=== PATIENT | female | born 1960 | race Caucasian/White ===

== ENCOUNTER 2016-02-25 13:21 | Inpatient (IN) | payer OTHER ==
[~2016-02-25] VITALS: Ht 175.3 cm; Wt 84.1 kg
[~2016-02-25 13:21] MED LIST: BETH10TA PO; CHOL3000 PO; GABA-502 PO; HYDR200T5 PO; INSLIS SUBQ; INSU100V7 SUBQ; IPRA4AER IH; LEVO200T6 PO; MAGN400T4 PO; METF1000 PO; METH-313 PO; MYCO500T PO; OMEP20CA11 PO; PRAZ1CAP PO; PRAZ2CAP PO; PRE10 PO; QUET100T69 PO; ROPI0.5T PO; albuterol inhaler
[2016-02-25 13:26] VITALS: BP 120/80; PULSE 118; RESP 20; O2SAT 98
--- NOTE | 2016-02-25 15:23 | ED.REPORT ---
HPI-Psychiatric Illness Date of Service Feb 25, 2016 ED Provider: Pk Lee MD Pt is a 55 year old female presenting to the ED complaining of confusion and memory loss. The pt was discharged from the third floor at [facility] yesterday and had a follow up appointment with a mental health professional yesterday. Today she was brought in by a sheet pile driver operator from a hotel where she is staying. On interview, the pt states "I don't know where I am", and that her head "feels funny." Nursing Notes Stated Complaint: CONFUSED/MEMORY LOSS Chief Complaint: Neuro Symptoms/ Deficits Nursing Notes Reviewed: Yes ([employer], meds not reconciled) Allergies: Coded Allergies: Penicillins (Verified Allergy, Severe, HIVES, 02/19/16) Quinolones (Verified Allergy, Severe, FACIAL SWELLING, 02/19/16) divalproex sodium (Verified Allergy, Severe, Dizziness, 02/19/16) levofloxacin (Verified Allergy, Severe, FACIAL SWELLING, 02/19/16) lithium (Verified Allergy, Severe, Dizziness, anxiety, and confusion, ) sulfamethoxazole (Verified Allergy, Severe, Passed out, 02/19/16) trimethoprim (Verified Allergy, Severe, Passed out, 02/19/16) duloxetine (Verified Allergy, Intermediate, makes me looney, 02/19/16) nitrofurantoin (Verified Allergy, Unknown, "all the side effects", ) duloxetine HCl (Verified Adverse Reaction, Severe, CONFUSION, 02/19/16) pregabalin (Verified Adverse Reaction, Severe, CONFUSION, 02/19/16) Scheduled ([albuterol inhaler]) TID Bethanechol Chloride (Bethanechol Chloride) 10 Mg Tablet 20 MG PO TIDAC Cholecalciferol (Vitamin D3) (Vitamin D3) 3,000 Unit Tablet 3,000 UNIT PO DAILY Gabapentin (Gabapentin) 300 Mg Capsule 900 MG PO QID Hydroxychloroquine Sulfate (Hydroxychloroquine Sulfate) 200 Mg Tablet 400 MG PO DAILY Insulin Glargine (Lantus U100 Insulin Vial) 100 Unit/Ml Vial 18 UNIT SUBQ HS Insulin Human Lispro (HumaLOG U100 Insulin Vial) 100 Unit/Ml Unit 0 UNIT SUBQ WMHS Check blood sugars before meals and at bedtime. Use correction factor only before meals. Blood Sugar Lispro Correction: <151, 0 units; 151-175, 1 unit; 176-200, 2 units; 201-225, 3 units; 226-250, 4 units; 251-275, 5 units; 276-300 , 6 units; 301-325, 7 units; 326-350, 8 units; 351-375, 9 units; 376-400, 10 units; >400, 12 units. Levothyroxine (Levothyroxine) 200 Mcg Tablet 200 MCG PO DAILY Magnesium Oxide (Magnesium Oxide) 400 Mg Tablet 400 MG PO BID Metformin (Glucophage) 1,000 Mg Tablet 1,000 MG PO BID Methocarbamol (Robaxin-750) 750 Mg Tablet 750 MG PO TID Mycophenolate Mofetil (Cellcept) 500 Mg Tablet 1,000 MG PO BID Omeprazole (Omeprazole) 20 Mg Capsule.dr 20 MG PO DAILY Prazosin (Minipress) 1 Mg Capsule 1 MG PO DAILY Prazosin (Minipress) 2 Mg Capsule 2 MG PO HS Prednisone (PredniSONE) 10 Mg Tablet 10 MG PO DAILY Quetiapine Fumarate (Quetiapine Fumarate) 100 Mg Tablet 100 MG PO DAILY Quetiapine Fumarate (Quetiapine Fumarate) 100 Mg Tablet 200 MG PO HS Ropinirole (Requip) 0.5 Mg Tablet 0.5 MG PO HS Scheduled PRN Albuterol/Ipratropium (Combivent Respimat Inhal [place]) 120 Spr/4 Gm Inhaler 1 PUFF IH QID PRN PRN For Shortness of Breath General Time Seen by MD: 15:05 Chief Complaint Confused Hx Obtained From: Patient Arrived By: Walk-in (Taxi) Onset Occurred: Onset unknown Symptom Duration: Since onset Progression Since Onset: Constant Severity: Current: No pain currently Severity: Maximum: No pain Recent Healthcare: Recent doctor visit, Recent hospitalization Similar Sx Previous: Yes Risk-Psychiatric Illness Suicide Risk Stratification Suicide Risk Factors - Adult: : Prior psych admission RF Statements: Risk factors reviewed Past Medical History Past Medical History Notes: Patient admitted 02/18-02/24 (discharged earlier today) for Psychosis, NOS, PTSD, and malingering Patient seen in ED 11/21 (similar presentation), 11/18, and 11/10, 11/02 (admit w/neg laury), 11/01 Last Admit 11/02-01/10 ALEXA'd for simialr sx - extensive medical w/u that was negative and psychiatric consultation with a concern for facticious component and borderline personality (See Pysch consult by Wale Stinson) Followed through the [place] clinic system for psychiatric care "followed closely by [facility]. frequent health care utilizer chronic pain and opiate habituation" - per prior notes Discharged 10/27/15 - primary diagnosis of borderline personality disorder: Suspected overdose, similar presentation hospitalization October 04-. According to the discharge summary "she was seen by psychiatry, psychiatry felt that she was not a candidate for inpatient psychiatric care..." They strongly recommend avoiding benzodiazepines. Past Medical History From EMR: [place] Fibromyalgia, nerve Hypercholesterolemia. Hypothyroidism. History of bilateral pulmonary emboli in the past. 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 PTSD. Depression. Anxiety. Previous suicide attempt. History of chronic urinary retention. Chronic pain syndrome with narcotic habituation (on Methadone) Reported Systemic Lupus on chronic steroids and [place] Schizoaffective disorder. Recently diagsnosed (10/2015) [place] 1 Factitious disorder and [place] II Borderline personality Reports: Diabetes mellitus, GERD, Hyperlipidemia Past Surgical History Complete bilateral knee replacement umbilical hernia Reports: Cholecystectomy, Hysterectomy Family History Both brother and dad had a heart attack at age 45. Dad apparently had CABG x4 and brother had at least an angiogram, not sure whether he had an intervention or not. Smoking History Former Smoker Social History Pt denies alcohol use when prompted, but admits to using alcohol on seperate occaisions. Records indicate history of polysubstance abuse Other Social History: Frequent ED visitor, Lives alone, Local resident Ambulatory Status Wheelchair Review of Systems Unable to Obtain ROS Uncooperative Physical Exam Initial Vital Signs Vital Signs (First) Date Time Temp Pulse Resp B/P Pulse Ox O2 Delivery O2 Flow Rate FiO2 02/25/16 13:26 36.7 118 20 120/80 98 Initial VS: Reviewed, Vital signs abnormal Head / Eyes: Atraumatic, Normocephalic, PERRL ENT: Mucous membranes moist, Conjunctiva normal, No scleral icterus Neck: Supple, Non-tender, Full range of motion Respiratory: Breath sounds normal, Clear to auscultation, No respiratory distress Cardiovascular: Regular rate & rhythm, Heart sounds normal, Intact distal pulses Abdomen / GI: No distention Extremities: Vascular intact, Neuro intact, No swelling, No tenderness Skin: Warm, Dry, No cyanosis General/Constitutional: No acute distress, Well hydrated, Not toxic appearing Neurologic: Speech NL (patient conversed normally with the nurse, but will not talk to me), No motor deficits (patient ambulated into the department), Gait NL Eyes closed, does not wish to engage. After 1 minute of being in the room in silence, she says she doesn't know where she is. She won't answer any questions. Same presentation as when I saw her 1 week ago. Does not appear dehydrated. Abnormal Mood/Affect: Positive: Flat affect Unable to Evaluate: Positive: Uncooperative Patient refuses to converse, similar to previous presentations-and therefore cannot really obtain a clear mental evaluation Interpretation & Diagnostics Lab Results Interpretation Result Diagram: 02/25/16 1625 02/25/16 1625 Test 02/25/16 16:25 02/25/16 17:20 White Blood Count 8.6th/mm3 (3.8-10.1) Red Blood Count 4.20mil/mm3 (3.90-5.20) Hemoglobin 11.1g/dL (12.0-15.6) Hematocrit 34.7% (35.0-46.0) Mean Corpuscular Volume 82.6fL (81-100) Mean Corpuscular Hemoglobin 26.4pg (27.0-35.0) Mean Corpuscular Hemoglobin Concent 32.0% (32.0-37.0) Red Cell Distribution Width 18.2% (12.3-15.4) Platelet Count 409bil/L (150-400) Neutrophils (%) (Auto) 61.8% (40-74) Lymphocytes (%) (Auto) 25.6% (14-46) Monocytes (%) (Auto) 10.7% (4-12) Eosinophils (%) (Auto) 0.1% (0-5) Basophils (%) (Auto) 0.6% (0-3) Sodium Level 141mEq/L (134-144) Potassium Level 4.1mEq/L (3.5-5.2) Chloride Level 101mEq/L (97-108) Carbon Dioxide Level 25mmol/L (18-29) Blood Urea Nitrogen 13mg/dL (6-24) Creatinine 0.62mg/dL (0.57-1.00) Estimat Glomerular Filtration Rate 144mL/min (>59) Glucose Level 103mg/dL (60-99) Calcium Level 9.2mg/dL (8.5-10.1) Total Bilirubin 0.2mg/dL (0.0-1.2) Aspartate Amino Transf (AST/SGOT) 11U/L (0-50) Alanine Aminotransferase (ALT/SGPT) 11U/L (0-32) Alkaline Phosphatase 50U/L (25-150) Total Protein 6.4g/dL (6.4-8.4) Albumin 3.7g/dL (3.4-5.0) Hold Game[employer] Top Tube Received (Received) Alcohol, Quantitative < 10mg/dL (0-10) Urine Color Yellow (YELLOW) Urine Appearance Hazy (CLEAR,HAZY) Urine pH 7.0 (5.0-8.0) Urine Specific [place] 1.010 (1.003-1.035) Urine Protein Negativemg/dL (NEG,TRACE) Urine Glucose (UA) Negativemg/dL (NEGATIVE) Urine Ketones Negativemg/dL (NEGATIVE) Urine Occult Blood Trace (NEGATIVE) Urine Nitrite Positive (NEGATIVE) Urine Bilirubin Negative (NEGATIVE) Urine Urobilinogen Normalmg/dL (NORMAL) Urine Leukocyte Esterase Small (NEGATIVE) Urine RBC 0-2/hpf (0-2) Urine WBC 0-5/hpf (0-5) Urine Epithelial Cells None/hpf (NONE-MOD) Urine Crystals None seen (NONE SEEN) Urine Bacteria None/hpf (NONE-FEW) Urine Hyaline Casts None/lpf (NONE) Urine Granular Casts None seen (NONE SEEN) Urine Waxy Casts None seen (NONE SEEN) Urine Red Blood Cell Casts None seen (NONE SEEN) Urine White Blood Cell Casts None seen (NONE SEEN) Urine Mucus Present (None Seen) Urine Trichomonas None seen (NONE SEEN) Urine Yeast None (NONE SEEN) Urinalysis Comment None Urine Culture Reflexed Indicated Lab Results Interpretation: CBC normal CMP normal Tox screen negative ETOH negative UA negative Re-Eval/Medical Decision Med Decision/Clinical Course This is a 55-year-old who was discharged yesterday from the [facility]. Family she went from the [facility] to a scheduled [facility] appointment and kept that appointment, and then went to some hotel. Apparently initially called to be transported back to the ED, that was not for reasons that are unclear, then the statements were that the hotel called she was acting bizarrely to have her brought back to the emergency department. I seen a number of times and formed, and regularly interview today she again will not interact with me. She will not answer questions. She clearly understands what is being asked of her and apparently was talking appropriate with the nurses, and ambulated into the department. This is similar behavior she is demonstrating previously. Over multiple hours she refused to talk to me, subsequently nurse, the ENAMEL BURNER, etc. Once again labs were obtained. She received empiric IV fluids given her previous presentations concern for dehydration, but there are no clinical findings of dehydration evident, she had a mildly elevated heart rate when she first arrived this resolved. Urine tox alcohol is negative, blood work is normal, UA is negative. Meds while she ends remained completely uncooperative and not talking to anybody -at this point ENAMEL BURNER talk to the DCR the DCR's dispatch, and the patient's being hydrated with revocation of her LRO, back to the care center Source of Hx: Old records Re-Evaluation/Progress : Time of Eval: 18:40 Patient Status: Condition unchanged Re-Evaluation/Progress Note: Patient continues to refuse to talk or participate in care. Labs normal. ENAMEL BURNER is paging DCR for eval Differential Diagnosis: Positive: Noncompliance-medications, Negative: Alcohol abuse Counseled Regarding: Diagnosis, Lab results, Need for follow-up, When/why to return to ED Discharge & Departure Impression: Primary Impression: Acute psychosis Disposition: ADMITTED TO HOSPITAL Discharge Condition All VS Reviewed: Yes Condition: Improved Referrals: [facility] (PCP) Nazarioibbraden Attestation Portions of this note were transcribed by Anat George. I, Dr. Lee personally performed the history, physical exam and medical decision-making; I reviewed and confirmed the accuracy of the information in the transcribed note. Signed by: Haroon Villagomez, 02/25/2016 at (TIME). copies to: [facility] Pk Lee MD Feb 25, 2016 15:23 ANAT GEORGE Feb 25, 2016 15:36
[2016-02-25] MEDS ORDERED: 0.9% Sodium Chloride 1,000 ML IV ONE (16:35)
[2016-02-25 16:51] LABS: BASOPHILS % (AUTO) 0.6 % (0-3); EOSINOPHILS % (AUTO) 0.1 % (0-5); MONOCYTES % (AUTO) 10.7 % (4-12); Mean Corpuscular Hemoglobin 26.4 pg (27.0-35.0); Mean Corpuscular Volume 82.6 fL (81-100); NEUTROPHILS % (AUTO) 61.8 % (40-74); Platelet Count 409 bil/L (150-400)
[2016-02-25 18:26] LABS: APPEARANCE,URINE HAZY (CLEAR,HAZY); COLOR,URINE YELLOW (YELLOW); OCCULT BLOOD,URINE TRACE (NEGATIVE)
[2016-02-25 18:27] LABS: UROBILINOGEN,URINE NORMAL (NORMAL)
--- NOTE | 2016-02-25 23:30 | NUR ---
[facility] Note 1918: Patient appears to be sleeping. She is not verbally or physically responsive to staff attempting to wake her or speak with her. She does not appear to be sleeping at these times, but is volitionally keeping her eyes closed. She appears flat and not distressed. : Same behavior during staff re-approach every half an hour. 2329: Patient was physically set up on the side of her bed. Staff began to change her out of a hospital gown into scrubs for movement from the emergency room to the mental health unit. She appeared responsive but did not participate in putting the scrub top on. She took the top off and returned to her sleeping position in a calm manner, but was cooperative with staff putting it back on. She then stood up with staff assistance to put on scrub pants. She was asked to sit on the side of the bed we could move her upstairs so she didn't feel dizzy during the trip. She remained mute except to ask if she could lay down again. Patient was unable or unwilling to report how she got here, if she was oriented, or if she was having any thought/mood disturbances.
--- NOTE | 2016-02-26 02:03 | NUR ---
Nursing Admit Note Pt here gravely disabled 90 LR petition to revoke. Pt presents psychosis nos/ gravely disabled. Pt Dc'ed yesterday from this facility. Pt arrived via wheelchair with two staff persons. Pt ambulated to room upon arrival but unwilling to speak to staff or participate with assessment. Pt arrival at 2355 on 02/25/16.
[2016-02-26] MEDS ORDERED: Benzocaine-Menthol Lozenge 2/Pkg PO PRN (05:00)
[2016-02-26] MEDS ORDERED: Alum-Mag Hydrox-Simeth 30 mL Suspension PO PRN (05:00)
[2016-02-26] MEDS ORDERED: Magnesium Hydroxide 10 mL Oral Concentration PO PRN (05:00)
[2016-02-26] MEDS ORDERED: Albuterol-Ipratropium 120 Spray 4 Gm Inhaler INHALATION PRN (05:10)
--- NOTE | 2016-02-26 06:46 | NUR ---
Sleep Adequate sleep with over 6 hours. No noted distress or awakening per protocol checks.
[2016-02-26] MEDS: Insulin LISPRO 300 Unit/3 mL Inj SUBQ SCH ×4 (07:55→20:41)
[2016-02-26] MEDS: predniSONE 10 mg Tablet PO SCH ×2 (08:30→14:57)
[2016-02-26] MEDS: Hydroxychloroqine 200 mg Tablet PO SCH (08:30)
[2016-02-26] MEDS: Pantoprazole 20 mg ER24 Tablet PO SCH ×2 (08:30→14:58)
--- NOTE | 2016-02-26 10:23 | NUR ---
Nursing Day Shift- S/O- Pt. was visible on the unit at the start of the day shift today. She was ambulating with a steady slow gait with the use of a front wheeled walker. Pt. appeared alert and oriented to her surroundings, but declined to respond verbally to staff greetings or questions. Staff attempted to obtain a BS, but the Pt. pulled her hand away, and clenched her fingers into a ball. Pt. declined breakfast, then her morning medications. She spent close to an hour walking the hallway, then returned to bed. Medications were offered again at 1035, and the Pt. clenched her eyes closed, then turned away in her bed. A- Pt. appears to be choosing to ignore staff. Resistant to care at this time. Appears to have a steady gait, and no apparent problems with cognition. PChristine OROZCO notified. Cont. to monitor and support. Cont. BHTP. Addendum: 02/26/16 at 1517 by REBECCA JERRY RN Pt. was observed walking outside her room without clothing 2 times at about 1300. both times she appeared steady, and was redirected to her room to dress. Pt. stated: "Can I get some clean clothing?" the 2nd time it occurred. At 1445 Pt. was presented with Seroquel, Flexeril and Prednisone PO. She initially did not respond to a staff request to take her medications. The order for a 2nd opinion for forced medications was explained to her, and the Pt. then sat up at the bedside and swallowed the 3 pills. She was encouraged to allow a BS check before dinner, and offered positive reinforcement for making a healthy choice.
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
--- NOTE | 2016-02-26 16:26 | NUR ---
Jig Bore Tool Maker./ c.m. S./O.: in the middle of the morning signwriter came into pt.'s room together with MD to complete Psychosocial and Treatment plan and goals. Pt. was in bed resting. She refused to open her eyes, refused to talk. MD and signwriter notified pt. about a reason of the visit but she continued being mute. Pt. is [employer]LEXA as a petition for revocation of 90 LRO. A.: pt. is isolative, quiet, selectively mute. P.: monitor behavior, encourage pt. to take meds; follow care plan.
--- NOTE | 2016-02-26 19:42 | NUR ---
Observations 0900 to 2130 Pt affect and mood was isolative, flat and guarded. Pt speech and eye contact was poor. Pt did not attend groups and unit activities. Pt maintained behavior control throughout the shift other than coming out of her room naked and walked down the hallway before being redirected by staff. Pt declined to attend meals in the D.R. and had a poor appetite today. Pt was in her room and in bed most of the shift. Pt was observed every 15 minutes throughout the shift as ordered.
--- NOTE | 2016-02-26 20:43 | NUR ---
NURSING NOTE [id number] Orientation: unable to assess Mood: unable to assess, pt. did not respond Affect: unresponsive, at times appeared to be sleeping heavily despite being spoken to with a loud voice and multiple attempts to stir her Behavior: pt. has been resting in bed since start of shift. She appears to have been urinating into water cups at her bedside; dark nela color noted. Bedside table was cleaned and water and encouragement provided to promote hydration. Pt. refused her meals this evening. She refused her scheduled afternoon medications and FSBS (refusal noted by her unwillingness to respond to this proposal lead writer when being spoken to). This evening she had Seroquel scheduled and initially laid in bed, unresponsive, when presented with the medication. She was then presented with an IM Zyprexa and given the option for taking her Seroquel PO or given a shot. At this, she extended her hand and took the pill cup from this proposal lead writer and swallowed the Seroquel.
[2016-02-26] MEDS ORDERED: Insulin GLARgine 100 Unit/mL Syringe SUBQ SCH (21:00)
--- NOTE | 2016-02-27 04:01 | NUR ---
OBSERVATIONS 1900 TO 0700 Pt remained in bed throughout entirety of shift. Pt was unresponsive with staff. Pt noted asleep at 23:15. Maintained Q15 checks for safety as directed.
--- NOTE | 2016-02-27 06:07 | NUR ---
Nursing note: police shift commander Patient is resting quietly on bed on q 15 min safety checks during the night. Respirations noted to be regular and unlabored Patient was not observed to be out of her bed. Patient does not verbally respond when approached, only lays on her bed with eyes closed.
[2016-02-27] MEDS: Pantoprazole 20 mg ER24 Tablet PO SCH ×2 (06:10→08:30)
[2016-02-27] MEDS: Insulin LISPRO 300 Unit/3 mL Inj SUBQ SCH (08:00)
[2016-02-27] MEDS: Hydroxychloroqine 200 mg Tablet PO SCH (08:30)
[2016-02-27] MEDS: predniSONE 10 mg Tablet PO SCH (08:30)
--- NOTE | 2016-02-27 11:19 | PCM.DIMED ---
Discharge Instructions Date of Service Feb 27, 2016 Dates of Hospitalization Feb 25, 2016 at 22:51 Discharge Diagnosis Discharge Diagnosis Malingering Borderline Personality DO Diet No restrictions Activity No restrictions Dano Cooper DO Feb 27, 2016 11:19
--- NOTE | 2016-02-27 13:54 | DIS ---
[address] [address] DISCHARGE SUMMARY PATIENT: CORNELIUS DAS : 1960 MR#: [id number] ADMIT: 02/25/2016 JOB ID: [id number] DIS: ADMITTING DIAGNOSES: [place] I. 1. Malingering. 2. Posttraumatic stress disorder, chronic. [place] II. 1. Borderline personality disorder. 2. Dependent personality disorder. [place] III. History of diabetes, lupus. [place] IV. Stressors are moderate with chronic mental health issues, noncompliance, ineffective coping skills, limited social support. [place] V. Global Assessment of Functioning current 35. DISCHARGE DIAGNOSES: [place] I. 1. Malingering. 2. Posttraumatic stress disorder, chronic. [place] II. 1. Borderline personality disorder. 2. Dependent personality disorder. [place] III. History of diabetes, lupus. [place] IV. Stressors are moderate with chronic mental health issues, noncompliance, ineffective coping skills, limited social support. [place] V. Global Assessment of Functioning current 40. REASON FOR ADMISSION: Patient was a well-known patient with recent hospitalization and discharge within the past week on an LR 90 with additional 30 days maintained in the hospital, due to her refusal to cooperate with disposition planning and referrals to housing options. The patient reportedly presented to the emergency department after significant concerns were expressed by a tone cabinet assembler of the patient's listlessness and inability to respond. Dr. Ghosh had done an evaluation with noted identification of volitional and purposeful presentation of unresponsiveness.Her neuro exam thorughout hospitalization was suggestive of purposeful avoidance and refusal to respond. Throughout the course of hospitalization, the patient continued to be consistent with her unwillingness to cooperate with administration of medications, participation in the group activities, however, responded when presented with options of either taking medications by oral administration or IM. Throughout hospital course, it was very clear that the patient had significant difficulties with purposeful noncompliance and albeit that the patient is expressing significant poor judgment on maintenance of her healthcare. Neither myself or additional treatment team members feel that this is representation of psychiatric presentation. It is felt at this time that the patient is displaying volitional acts of obtaining secondary gain of additional housing and support and that she has made open identification that she does not want to return back to her apartment dwelling. Throughout hospital course, no further followup with additional laboratory testing was noted other than routine glucometer readings. On the day of discharge, her glucose was noted at 165. She remained on all previous medications, both for her previous diagnosis of diabetes,lupus and also psychiatric presentation. Condition at the time of discharge: Mental Status: The patient refused to open her eyes during the course of interview, but there was noted blinking throughout the course of conversation and deep breathing. She was responsive to touch and showed significant anger and frustration with affective restriciton. . Her speech was limited . Her mood was dysphoric. Her affect was irritable, labile. Her thought process shows no evidence of racing thoughts, flight of ideas, loose or disconnected thinking. Her thought content: There has been no mention of suicidal, homicidal variant other then identified prior with her attempts of gaining additional housing support. There are no representations of hallucinations or delusions. No evidence of paranoia. She was alert to sound and touch. Her attention and concentration are fleeting. Her memory untested. Insight and judgment are deemed poor. PLAN/RECOMMENDATIONS: 1. Discharge to home. Calls will be placed with transporter taxi with indication that if the patient refuses to remove herself from the cab that police may have to be notified and criminal trespassing charges be filed. 2. Recommendations for continuation of followup with [facility]. Unfortunately, at this time, offices are closed so no confirmation of appointments. However, Allyn land planner will be placing calls tomorrow and will alert the patient with the next scheduled followup as part of her LR 90. 3. Follow up with routine medical appointments through the [facility] system for ongoing monitoring of her diabetes and lupus care. 4. Recommendations for continuation of psychiatric medications including Seroquel 100 mg q.a.m., 200 mg q.h.s., prazosin 1 mg q.a.m., 2 mg q.h.s. No prescriptions were given. 5. Continuation of all other medications including Neurontin, bethanecol, insulin doses, levothyroxine, and Requip as prior noted. No prescriptions were given. 6. In the future, I do not feel that the patient is appropriate for an inpatient psychiatric hospitalization. I do feel that it is clear both on admission at this time as well as with her most recent hospitalization the patient has attempted to continue to persist with a desire to receive additional support and housing which is not readily available. I do feel that the patient's primary diagnosis is that of borderline personality and dependent personality with a primary representation of malingering. In the future, I do feel that the patient would be best served if she were to present to the emergency room or to other care providers with the above complaints that police could be notified and possible charges may have to be pursued including criminal trespassing.I believe that the patient would do best with a strong correctional based intervention. [place]
--- NOTE | 2016-02-27 14:25 | NUR ---
Nursing Note Discharge Pt in bed all day. Pt refused to get up for breakfast or lunch. Water at bedside. Pt refused am medications & was given Zyprexa 10 mg IM. Pt refused to talk. When talking with pt, pt eyes fluttered & wiggled back & forth. Informed pt that psychiatrist had signed her discharge papers. 0800 blood sugar was 151. Blood sugar prior to leaving was 165. No insulin given d/t pt not getting up to eat. Explained discharge papers to pt. Pt would not get up to sign papers even though her eyes fluttered to show that she was awake. reservoir engineering manager, nursing yard general car supervisor & returned case inspector informed that pt was refusing to eat, drink, communicate or sign paper. Medication offered again to pt. Assistance with using the bathroom offered. Security called to escort pt out of facility. ED notified that pt is malingering. Pt able to transfer with assistance into the w/c. Pt ambulated with walker without assistance into cab to take her home at 1355.
--- NOTE | 2016-02-27 16:14 | NUR ---
Airplane Pilot Crop Dusting./ niru S./O.: came into pt.'s room together with the doctor. Pt. was in bed and refused to talk or open her eyes. It was obvious that she heard everything that doctor asked her about. She refused to answer on questions or to make any comments. Mortgage Loan Funder called [facility] @ [phone] to schedule follow up appt. after hospitalization but agency was closed. Mortgage Loan Funder called Yany Mckenzie @ [facility] asking for a phone for next day appt. She didn't know that #. Mortgage Loan Funder will call [facility] tomorrow to schedule follow up appt. with Daniel Enriquez c.m. and than will call pt. with the date and time of the appt. Eyad was called for 14:00. A.: pt. is uncooperative, selectively mute, very manipulative. P.: monitor behavior, follow care plan.
== END 2016-02-27 13:55 | disposition home or self-care (01) | DRG 951 ==
LOC: SED 13:21 → MHC 22:51
PROVIDERS: ADMIT Psychiatry & Neurology Psychiatry; ATTEND Psychiatry & Neurology Psychiatry
DX: Z76.5 Malingerer [conscious simulation] (principal); F43.12 Post-traumatic stress disorder, chronic; F60.3 Borderline personality disorder; F60.7 Dependent personality disorder; Z79.4 Long term (current) use of insulin; Z79.84 Long term (current) use of oral hypoglycemic drugs; Z86.711 Personal history of pulmonary embolism; I25.2 Old myocardial infarction; Z87.820 Personal history of traumatic brain injury; Z91.5 Personal history of self-harm; Z91.19 Patient's noncompliance with other medical treatment and regimen

== ENCOUNTER 2016-02-28 08:09 | Emergency (ER) | payer OTHER ==
[~2016-02-28] VITALS: Ht 180.3 cm; Wt 84.1 kg
[2016-02-28 08:14] VITALS: BP 144/80; PULSE 120; RESP 18; O2SAT 100
--- NOTE | 2016-02-28 09:12 | ED.REPORT ---
HPI-General Illness Date of Service Feb 28, 2016 ED Provider: Dino Carnes Pt is a 55 y/o female w/ a long history of malingering presenting to the ED via PD for mental health evaluation. She was discharged from the psych inpatient unit here yesterday with concern for malingering. She was apparently out on her porch, barefoot, and asking for help today. She is uncooperative and will not answer any questions or speak at all. Nursing Notes Stated Complaint: MENTAL HEALTH Chief Complaint: Psychiatric Complaint Nursing Notes Reviewed: Yes Allergies: Coded Allergies: Penicillins (Verified Allergy, Severe, HIVES, 02/19/16) Quinolones (Verified Allergy, Severe, FACIAL SWELLING, 02/19/16) divalproex sodium (Verified Allergy, Severe, Dizziness, 02/19/16) levofloxacin (Verified Allergy, Severe, FACIAL SWELLING, 02/19/16) lithium (Verified Allergy, Severe, Dizziness, anxiety, and confusion, ) sulfamethoxazole (Verified Allergy, Severe, Passed out, 02/19/16) trimethoprim (Verified Allergy, Severe, Passed out, 02/19/16) duloxetine (Verified Allergy, Intermediate, makes me looney, 02/19/16) nitrofurantoin (Verified Allergy, Unknown, "all the side effects", ) duloxetine HCl (Verified Adverse Reaction, Severe, CONFUSION, 02/19/16) pregabalin (Verified Adverse Reaction, Severe, CONFUSION, 02/19/16) Scheduled ([albuterol inhaler]) TID Bethanechol Chloride (Bethanechol Chloride) 10 Mg Tablet 20 MG PO TIDAC Cholecalciferol (Vitamin D3) (Vitamin D3) 3,000 Unit Tablet 3,000 UNIT PO DAILY Gabapentin (Gabapentin) 300 Mg Capsule 900 MG PO QID Hydroxychloroquine Sulfate (Hydroxychloroquine Sulfate) 200 Mg Tablet 400 MG PO DAILY Insulin Glargine (Lantus U100 Insulin Vial) 100 Unit/Ml Vial 18 UNIT SUBQ HS Insulin Human Lispro (HumaLOG U100 Insulin Vial) 100 Unit/Ml Unit 0 UNIT SUBQ WMHS Check blood sugars before meals and at bedtime. Use correction factor only before meals. Blood Sugar Lispro Correction: <151, 0 units; 151-175, 1 unit; 176-200, 2 units; 201-225, 3 units; 226-250, 4 units; 251-275, 5 units; 276-300 , 6 units; 301-325, 7 units; 326-350, 8 units; 351-375, 9 units; 376-400, 10 units; >400, 12 units. Levothyroxine (Levothyroxine) 200 Mcg Tablet 200 MCG PO DAILY Magnesium Oxide (Magnesium Oxide) 400 Mg Tablet 400 MG PO BID Metformin (Glucophage) 1,000 Mg Tablet 1,000 MG PO BID Methocarbamol (Robaxin-750) 750 Mg Tablet 750 MG PO TID Mycophenolate Mofetil (Cellcept) 500 Mg Tablet 1,000 MG PO BID Omeprazole (Omeprazole) 20 Mg Capsule.dr 20 MG PO DAILY Prazosin (Minipress) 1 Mg Capsule 1 MG PO DAILY Prazosin (Minipress) 2 Mg Capsule 2 MG PO HS Prednisone (PredniSONE) 10 Mg Tablet 10 MG PO DAILY Quetiapine Fumarate (Quetiapine Fumarate) 100 Mg Tablet 100 MG PO DAILY Quetiapine Fumarate (Quetiapine Fumarate) 100 Mg Tablet 200 MG PO HS Ropinirole (Requip) 0.5 Mg Tablet 0.5 MG PO HS Scheduled PRN Albuterol/Ipratropium (Combivent Respimat Inhal [place]) 120 Spr/4 Gm Inhaler 1 PUFF IH QID PRN PRN For Shortness of Breath General Time Seen by MD: 08:57 Chief Complaint Other (Bizarre behavior) Hx Obtained From: Police Unable to Obtain Hx: Uncooperative, Mental status Arrived By: Police Past Medical History Past Medical History Notes: Patient admitted 02/18-02/24 (discharged earlier today) for Psychosis, NOS, PTSD, and malingering Patient seen in ED 11/21 (similar presentation), 11/18, and 11/10, 11/02 (admit w/neg schaeffer), 11/01 Last Admit 11/02-01/10 ALEXA'd for simialr sx - extensive medical w/u that was negative and psychiatric consultation with a concern for facticious component and borderline personality (See Pysch consult by Wale Stinson) [facility] "followed closely by [facility]. frequent health care utilizer chronic pain and opiate habituation" - per prior notes Discharged 10/27/15 - primary diagnosis of borderline personality disorder: Suspected overdose, similar presentation hospitalization October 04-. According to the discharge summary "she was seen by psychiatry, psychiatry felt that she was not a candidate for inpatient psychiatric care..." They strongly recommend avoiding benzodiazepines. Past Medical History From EMR: [place] Fibromyalgia, nerve Hypercholesterolemia. Hypothyroidism. History of bilateral pulmonary emboli in the past. 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 PTSD. Depression. Anxiety. Previous suicide attempt. History of chronic urinary retention. Chronic pain syndrome with narcotic habituation (on Methadone) Reported Systemic Lupus on chronic steroids and Plaqueni Schizoaffective disorder. Recently diagsnosed (10/2015) [place] 1 Factitious disorder and [place] II Borderline personality Reports: Diabetes mellitus, GERD, Hyperlipidemia Past Surgical History Complete bilateral knee replacement umbilical hernia Reports: Cholecystectomy, Hysterectomy Family History Both brother and dad had a heart attack at age 45. Dad apparently had CABG x4 and brother had at least an angiogram, not sure whether he had an intervention or not. Smoking History Former Smoker Social History Pt denies alcohol use when prompted, but admits to using alcohol on seperate occaisions. Records indicate history of polysubstance abuse Other Social History: Frequent ED visitor, Lives alone, Local resident Ambulatory Status Wheelchair Review of Systems Unable to Obtain ROS Mental status Physical Exam In regards to her low grade tachycardia. She has had intermittent tachycardia for multiple visits and this is within a reasonable range for her Vital Signs Vital Signs Date Time Temp Pulse Resp B/P Pulse Ox O2 Delivery O2 Flow Rate FiO2 02/28/16 08:14 36.0 120 18 144/80 100 Room Air Initial VS: Reviewed, Vital signs normal Neck: Full range of motion Respiratory: Breath sounds normal, Clear to auscultation, No respiratory distress Extremities: Vascular intact Skin: Warm, Dry Neurologic: Alert General/Constitutional: Awake, Alert, No acute distress Chapped lips Cardiovascular: Regular rhythm, Heart sounds NL, No gallop, No murmurs, No rubs , Cap refill not delayed, Peripheral circulation NL Heart Rate / Rhythm: Positive: Tachycardia PSYCH: Nonverbal, makes good eye contact, makes gestures such as head nodding and head movement Re-Eval/Medical Decision Med Decision/Clinical Course This patient has no emergent medical condition. Old records have been reviewed this patient has a long-standing history of mental health admissions, most recently discharged yesterday. Based on the discharge summary from yesterday as evaluated by psychiatry this patient's primary diagnosis was malingering. It was felt that this patient had essentially been uncooperative in order for secondary gain. Should also be noted that the documented physical exam and overall condition of the patient yesterday at discharge is the same as today. While the patient will not speak she makes other cogent movements and interactions that would suggest that she is awake and alert and appropriate, she is ambulatory around the room, she follows commands. There is no emergent medical condition that would warrant diagnostic evaluation or other intervention. She is discharged to continue her discharge plan as of yesterday from mental [facility]. Time of Eval: 09:15 Re-Evaluation/Progress Note: Will be discharged via security. Counseled Regarding: Diagnosis, Need for follow-up, When/why to return to ED Discharge & Departure Primary Impression: Encounter for medical screening examination Disposition: Home Discharge Condition All VS Reviewed: Yes Condition: Stable Additional Instructions: Continue your mental health plan as detailed by your mental health discharge yesterday. Contact [facility] or the crisis line as needed for further care. [facility] Haroon Attestation Portions of this note were transcribed by Mick Ribeiro. I, Dr. Carnes personally performed the history, physical exam and medical decision-making; I reviewed and confirmed the accuracy of the information in the transcribed note. Signed by Haroon Hawkins, 02/28/16914 copies to: [facility] Dino Carnes DO Feb 28, 2016 09:12 MICK RIBEIRO Feb 28, 2016 09:17
== END 2016-02-28 09:17 | disposition home or self-care (01) ==
LOC: SED 08:09
DX: Z13.89 Encounter for screening for other disorder (principal); E11.59 Type 2 diabetes mellitus with other circulatory complications; I25.10 Atherosclerotic heart disease of native coronary artery without angina pectoris; K21.9 Gastro-esophageal reflux disease without esophagitis; E78.5 Hyperlipidemia, unspecified; E03.9 Hypothyroidism, unspecified; Z79.4 Long term (current) use of insulin; Z79.84 Long term (current) use of oral hypoglycemic drugs; Z87.891 Personal history of nicotine dependence; Z88.0 Allergy status to penicillin; Z88.1 Allergy status to other antibiotic agents; Z88.2 Allergy status to sulfonamides; Z88.8 Allergy status to other drugs, medicaments and biological substances

== ENCOUNTER 2016-02-28 18:07 | Emergency (ER) | payer OTHER ==
[2016-02-28 18:15] VITALS: BP 140/96; PULSE 117; RESP 18; O2SAT 99
--- NOTE | 2016-02-28 18:53 | ED.REPORT ---
HPI-Psychiatric Illness Date of Service Feb 28, 2016 ED Provider: History of Present Illness: [facility]. recently discharged from the care center. Seen here earlier today. Patient states she has someone to pick her up. Does not provide any name Nursing Notes Stated Complaint: MENTAL EVAL Chief Complaint: General Complaint Nursing Notes Reviewed: Yes Allergies: Coded Allergies: Penicillins (Verified Allergy, Severe, HIVES, 02/28/16) Quinolones (Verified Allergy, Severe, FACIAL SWELLING, 02/28/16) divalproex sodium (Verified Allergy, Severe, Dizziness, 02/28/16) levofloxacin (Verified Allergy, Severe, FACIAL SWELLING, 02/28/16) lithium (Verified Allergy, Severe, Dizziness, anxiety, and confusion, ) sulfamethoxazole (Verified Allergy, Severe, Passed out, 02/28/16) trimethoprim (Verified Allergy, Severe, Passed out, 02/28/16) duloxetine (Verified Allergy, Intermediate, makes me looney, 02/28/16) nitrofurantoin (Verified Allergy, Unknown, "all the side effects", 02/28/16) duloxetine HCl (Verified Adverse Reaction, Severe, CONFUSION, 02/28/16) pregabalin (Verified Adverse Reaction, Severe, CONFUSION, 02/28/16) Scheduled ([albuterol inhaler]) TID Bethanechol Chloride (Bethanechol Chloride) 10 Mg Tablet 20 MG PO TIDAC Cholecalciferol (Vitamin D3) (Vitamin D3) 3,000 Unit Tablet 3,000 UNIT PO DAILY Gabapentin (Gabapentin) 300 Mg Capsule 900 MG PO QID Hydroxychloroquine Sulfate (Hydroxychloroquine Sulfate) 200 Mg Tablet 400 MG PO DAILY Insulin Glargine (Lantus U100 Insulin Vial) 100 Unit/Ml Vial 18 UNIT SUBQ HS Insulin Human Lispro (HumaLOG U100 Insulin Vial) 100 Unit/Ml Unit 0 UNIT SUBQ WMHS Check blood sugars before meals and at bedtime. Use correction factor only before meals. Blood Sugar Lispro Correction: <151, 0 units; 151-175, 1 unit; 176-200, 2 units; 201-225, 3 units; 226-250, 4 units; 251-275, 5 units; 276-300 , 6 units; 301-325, 7 units; 326-350, 8 units; 351-375, 9 units; 376-400, 10 units; >400, 12 units. Levothyroxine (Levothyroxine) 200 Mcg Tablet 200 MCG PO DAILY Magnesium Oxide (Magnesium Oxide) 400 Mg Tablet 400 MG PO BID Metformin (Glucophage) 1,000 Mg Tablet 1,000 MG PO BID Methocarbamol (Robaxin-750) 750 Mg Tablet 750 MG PO TID Mycophenolate Mofetil (Cellcept) 500 Mg Tablet 1,000 MG PO BID Omeprazole (Omeprazole) 20 Mg Capsule.dr 20 MG PO DAILY Prazosin (Minipress) 1 Mg Capsule 1 MG PO DAILY Prazosin (Minipress) 2 Mg Capsule 2 MG PO HS Prednisone (PredniSONE) 10 Mg Tablet 10 MG PO DAILY Quetiapine Fumarate (Quetiapine Fumarate) 100 Mg Tablet 100 MG PO DAILY Quetiapine Fumarate (Quetiapine Fumarate) 100 Mg Tablet 200 MG PO HS Ropinirole (Requip) 0.5 Mg Tablet 0.5 MG PO HS Scheduled PRN Albuterol/Ipratropium (Combivent Respimat Inhal [place]) 120 Spr/4 Gm Inhaler 1 PUFF IH QID PRN PRN For Shortness of Breath General Time Seen by MD: 18:53 Chief Complaint Other (passive aggreswsive behavior) Hx Obtained From: Patient Risk-Psychiatric Illness Suicide Risk Stratification Suicide Risk Factors - Adult: : Prior psych admission: Substance abuseNo: Access to firearms, Alcohol use, Close associate suicide, Family Hx of Suicide, Previous attempt RF Statements: Risk factors reviewed Past Medical History Past Medical History Notes: Patient admitted 02/18-02/24 (discharged earlier today) for Psychosis, NOS, PTSD, and malingering Patient seen in ED 11/21 (similar presentation), 11/18, and 11/10, 11/02 (admit w/neg schaeffer), 11/01 Last Admit 11/02-01/10 ALEXA'd for simialr sx - extensive medical w/u that was negative and psychiatric consultation with a concern for facticious component and borderline personality (See Pysch consult by Wale Stinson) [facility] "followed closely by [facility]. frequent health care utilizer chronic pain and opiate habituation" - per prior notes Discharged 10/27/15 - primary diagnosis of borderline personality disorder: Suspected overdose, similar presentation hospitalization October 04-. According to the discharge summary "she was seen by psychiatry, psychiatry felt that she was not a candidate for inpatient psychiatric care..." They strongly recommend avoiding benzodiazepines. Past Medical History From EMR: [place] Fibromyalgia, nerve Hypercholesterolemia. Hypothyroidism. History of bilateral pulmonary emboli in the past. 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 PTSD. Depression. Anxiety. Previous suicide attempt. History of chronic urinary retention. Chronic pain syndrome with narcotic habituation (on Methadone) Reported Systemic Lupus on chronic steroids and [place] Schizoaffective disorder. Recently diagsnosed (10/2015) [place] 1 Factitious disorder and [place] II Borderline personality Reports: Diabetes mellitus, GERD, Hyperlipidemia, Denies: Asthma Past Surgical History Complete bilateral knee replacement umbilical hernia Reports: Cholecystectomy, Hysterectomy Family History Both brother and dad had a heart attack at age 45. Dad apparently had CABG x4 and brother had at least an angiogram, not sure whether he had an intervention or not. Smoking History Former Smoker Social History Pt denies alcohol use when prompted, but admits to using alcohol on seperate occaisions. Records indicate history of polysubstance abuse Other Social History: Frequent ED visitor, Lives alone, Local resident Ambulatory Status Independent Review of Systems Basic Review of Systems Eyes: Vision NL, No discharge ENT: Hearing NL, No pain, No nasal congestion, No pharyngeal pain : No dysuria, No frequency Musculoskeletal: No extremity swelling, No extremity pain, Full range of motion , Joints NL Hematologic: No bleeding, No bruising Endocrine: No cold intolerance, No heat intolerance, No weight gain, No weight loss Allergy / Immune: No allergy Physical Exam Initial Vital Signs Vital Signs (First) Date Time Temp Pulse Resp B/P Pulse Ox O2 Delivery O2 Flow Rate FiO2 02/28/16 18:15 36.5 117 18 140/96 99 Room Air Initial VS: Reviewed (heart rate is at 107), Vital signs abnormal Head / Eyes: Atraumatic, Normocephalic, PERRL ENT: Mucous membranes moist, Conjunctiva normal, No scleral icterus Neck: Supple, Non-tender, Full range of motion Respiratory: Breath sounds normal, Clear to auscultation, No respiratory distress Cardiovascular: Regular rate & rhythm, Heart sounds normal, Intact distal pulses Abdomen / GI: Soft, Non-tender, No guarding, No rebound, No distention Back: No CVA tenderness Lymphatic: No lymphadenopathy Extremities: Vascular intact, Neuro intact, No swelling, No tenderness Skin: Warm, Dry, No cyanosis General/Constitutional: Awake, Alert, No acute distress, Well appearing, Well developed, Well hydrated patient at her baseline, talks when she wants to. [facility] than states she has someone coming for her. Advised patient someone can pick her up, but if she is still here 30 minutes form time of discharge, she will be trespassed Neurologic: Oriented X3, Speech NL, No motor deficits Psychiatric: Affect NL, Mood NL, Not suicidal Head / Eyes: Atraumatic, Normocephalic, PERRL Discharge & Departure Impression: Primary Impression: Borderline personality disorder Additional Instructions: You [facility]. If you choose not to go there , you are free to choose where you can stay. Please work with [facility] Ref[facility]: [facility] EDSupervising Provider for APC: Deisy Henao MD, Sue ARNP Feb 28, 2016 18:53
== END 2016-02-28 19:24 | disposition home or self-care (01) ==
LOC: SED 18:07 → EDBD 18:07 → EDUNIT# 18:07 → SED 19:24
DX: F60.3 Borderline personality disorder (principal); E11.9 Type 2 diabetes mellitus without complications; E78.5 Hyperlipidemia, unspecified; K21.9 Gastro-esophageal reflux disease without esophagitis; I25.2 Old myocardial infarction; Z87.820 Personal history of traumatic brain injury; Z87.891 Personal history of nicotine dependence; Z79.4 Long term (current) use of insulin; Z79.84 Long term (current) use of oral hypoglycemic drugs; Z88.0 Allergy status to penicillin; Z88.1 Allergy status to other antibiotic agents; Z88.8 Allergy status to other drugs, medicaments and biological substances; Z88.2 Allergy status to sulfonamides

== ENCOUNTER 2016-03-04 13:32 | Emergency (ER) | payer OTHER ==
[2016-03-04 13:43] VITALS: BP 128/82; PULSE 85; RESP 18; O2SAT 98
--- NOTE | 2016-03-04 13:44 | ED.REPORT ---
HPI-Psychiatric Illness Date of Service Mar 04, 2016 ED Provider: Pt presents to ED via EMS for altered level of consciousness. Pt is nonverbal and does not respond to questions about symptoms. Pt well known to the department, [facility] with concern about malingering. The ED nurse attempted to place pt in chair, pt willfully slumped to floor. She is unwilling to cooperative with the exam or interview at this time. Nursing Notes Stated Complaint: DISORIENTED Chief Complaint: Psychiatric Complaint Nursing Notes Reviewed: Yes Allergies: Coded Allergies: Penicillins (Verified Allergy, Severe, HIVES, 02/28/16) Quinolones (Verified Allergy, Severe, FACIAL SWELLING, 02/28/16) divalproex sodium (Verified Allergy, Severe, Dizziness, 02/28/16) levofloxacin (Verified Allergy, Severe, FACIAL SWELLING, 02/28/16) lithium (Verified Allergy, Severe, Dizziness, anxiety, and confusion, ) sulfamethoxazole (Verified Allergy, Severe, Passed out, 02/28/16) trimethoprim (Verified Allergy, Severe, Passed out, 02/28/16) duloxetine (Verified Allergy, Intermediate, makes me looney, 02/28/16) nitrofurantoin (Verified Allergy, Unknown, "all the side effects", 02/28/16) duloxetine HCl (Verified Adverse Reaction, Severe, CONFUSION, 02/28/16) pregabalin (Verified Adverse Reaction, Severe, CONFUSION, 02/28/16) Scheduled ([albuterol inhaler]) TID Bethanechol Chloride (Bethanechol Chloride) 10 Mg Tablet 20 MG PO TIDAC Cholecalciferol (Vitamin D3) (Vitamin D3) 3,000 Unit Tablet 3,000 UNIT PO DAILY Gabapentin (Gabapentin) 300 Mg Capsule 900 MG PO QID Hydroxychloroquine Sulfate (Hydroxychloroquine Sulfate) 200 Mg Tablet 400 MG PO DAILY Insulin Glargine (Lantus U100 Insulin Vial) 100 Unit/Ml Vial 18 UNIT SUBQ HS Insulin Human Lispro (HumaLOG U100 Insulin Vial) 100 Unit/Ml Unit 0 UNIT SUBQ WMHS Check blood sugars before meals and at bedtime. Use correction factor only before meals. Blood Sugar Lispro Correction: <151, 0 units; 151-175, 1 unit; 176-200, 2 units; 201-225, 3 units; 226-250, 4 units; 251-275, 5 units; 276-300 , 6 units; 301-325, 7 units; 326-350, 8 units; 351-375, 9 units; 376-400, 10 units; >400, 12 units. Levothyroxine (Levothyroxine) 200 Mcg Tablet 200 MCG PO DAILY Magnesium Oxide (Magnesium Oxide) 400 Mg Tablet 400 MG PO BID Metformin (Glucophage) 1,000 Mg Tablet 1,000 MG PO BID Methocarbamol (Robaxin-750) 750 Mg Tablet 750 MG PO TID Mycophenolate Mofetil (Cellcept) 500 Mg Tablet 1,000 MG PO BID Omeprazole (Omeprazole) 20 Mg Capsule.dr 20 MG PO DAILY Prazosin (Minipress) 1 Mg Capsule 1 MG PO DAILY Prazosin (Minipress) 2 Mg Capsule 2 MG PO HS Prednisone (PredniSONE) 10 Mg Tablet 10 MG PO DAILY Quetiapine Fumarate (Quetiapine Fumarate) 100 Mg Tablet 100 MG PO DAILY Quetiapine Fumarate (Quetiapine Fumarate) 100 Mg Tablet 200 MG PO HS Ropinirole (Requip) 0.5 Mg Tablet 0.5 MG PO HS Scheduled PRN Albuterol/Ipratropium (Combivent Respimat Inhal [place]) 120 Spr/4 Gm Inhaler 1 PUFF IH QID PRN PRN For Shortness of Breath General Time Seen by MD: 13:43 Chief Complaint Other (altered level of consciousness) Hx Obtained From: EMS Unable to Obtain Hx: Patient condition, Uncooperative Arrived By: Ambulance Onset Occurred: Just prior to arrival Symptom Duration: Waxes and wanes Progression Since Onset: Intermittent Severity: Current: No pain currently Severity: Maximum: No pain Recent Healthcare: Recent doctor visit, Recent hospitalization Similar Sx Previous: Yes Risk-Psychiatric Illness Suicide Risk Stratification Suicide Risk Factors - Adult: : Prior psych admission RF Statements: Risk factors reviewed Past Medical History Per Dr. Cooper, psychiatrist: In the future, I do not feel that the patient is appropriate for an inpatient psychiatric hospitalization. I do feel that it is clear both on admission at this time as well as with her most recent hospitalization the patient has attempted to continue to persist with a desire to receive additional support and housing which is not readily available. I do feel that the patient's primary diagnosis is that of borderline personality and dependent personality with a primary representation of malingering. In the future, I do feel that the patient would be best served if she were to present to the emergency room or to other care providers with the above complaints that police could be notified and possible charges may have to be pursued including criminal trespassing.I believe that the patient would do best with a strong correctional based intervention. Past Medical History [place] Fibromyalgia, nerve Hypercholesterolemia. Hypothyroidism. History of bilateral pulmonary emboli in the past. 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 PTSD. Depression. Anxiety. Previous suicide attempt. History of chronic urinary retention. 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 Dad apparently had CABG x4 and brother had at least an angiogram, not sure whether he had an intervention or not. Smoking History Former Smoker Social History Pt denies alcohol use when prompted, but admits to using alcohol on seperate occaisions. Records indicate history of polysubstance abuse Other Social History: Frequent ED visitor, Lives alone, Local resident Ambulatory Status Independent Review of Systems Unable to Obtain ROS Patient condition, Uncooperative Physical Exam Initial Vital Signs Vital Signs (First) Date Time Temp Pulse Resp B/P Pulse Ox O2 Delivery O2 Flow Rate FiO2 03/04/16 13:43 36.2 85 18 128/82 98 Initial VS: Reviewed Head / Eyes: Atraumatic, Normocephalic, PERRL ENT: Mucous membranes moist, Conjunctiva normal, No scleral icterus Neck: Supple, Non-tender, Full range of motion Respiratory: Breath sounds normal, Clear to auscultation, No respiratory distress Cardiovascular: Regular rate & rhythm, Heart sounds normal, Intact distal pulses Abdomen / GI: Soft, Non-tender, No guarding, No rebound, No distention Extremities: Vascular intact, Neuro intact, No swelling, No tenderness Skin: Warm, Dry, No cyanosis General/Constitutional: Awake, Well hydrated purposefully avoiding eye contact Neurologic: No motor deficits, No sensory deficits She is uncooperative with exam but does respond to painful stimuli. She moves all 4 extremities well. Unwilling to make eye contact but EOMI. Psychiatric: uncooperative Head / Eyes: Atraumatic, Normocephalic, PERRL, EOMI Re-Eval/Medical Decision Med Decision/Clinical Course Patient is well-known to the hospital system with known psychiatric diagnoses. Her presentation today is the same as prior visits to the ER and care center. She seems to be purposefully uncooperative, she has stable vital signs, moves all extremities symmetrically with equal pain response has clear lungs normal heart rhythm soft abdomen. I do not suspect any emergent medical condition. When the patient was informed that she was discharged as there is no medical reason for her to be here despite requiring an ambulance to come to the hospital. She promptly put on her own shoes picked up her things and walked out the front door. Return precautions and follow-up precautions are expressed. Source of Hx: Old records, EMS Re-Evaluation/Progress : Time of Eval: 13:55 Re-Evaluation/Progress Note: She is unwilling to cooperate with the exam and interview. She will be discharged to the waiting room. Counseled Regarding: Diagnosis, Need for follow-up, When/why to return to ED Discharge & Departure Impression: Primary Impression: Psychosis Psychosis type: unspecified psychosis type Qualified Code: F29 - Unspecified psychosis not due to a substance or known physiological condition )( Condition at Discharge: No danger to self, No danger to others, No suicidal ideation, No homicidal ideation Disposition: Home Discharge Condition All VS Reviewed: Yes Condition: Stable Additional Instructions: Return to ER as needed for any medical emergency. Referrals: [facility] (PCP) Scribe Attestation Portion of this note were transcribed by Xochitl Mckenna and Kuldip Martinez. I, Dr. Mariana Corea, personally performed the history, physcial exam, and medical decision- making: I reviewed and confirmed the accuracy for the information in the transcribed note. Signed by: Kuldip Martinez and jignesh Tobin, 03/01/16 2740. copies to: [facility] Dino Carnes DO Mar 04, 2016 13:44 KULDIP MARTINEZ Mar 04, 2016 13:48 Xochitl Mckenna Mar 04, 2016 14:03
[2016-03-04 14:29] VITALS: PULSE 85; RESP 18; O2SAT 98
== END 2016-03-04 14:29 | disposition home or self-care (01) ==
LOC: SED 13:32
DX: F29 Unspecified psychosis not due to a substance or known physiological condition (principal); I25.2 Old myocardial infarction; E78.5 Hyperlipidemia, unspecified; K21.9 Gastro-esophageal reflux disease without esophagitis; E11.9 Type 2 diabetes mellitus without complications; E03.9 Hypothyroidism, unspecified; Z87.820 Personal history of traumatic brain injury; Z87.891 Personal history of nicotine dependence; Z79.4 Long term (current) use of insulin; Z79.84 Long term (current) use of oral hypoglycemic drugs; Z88.0 Allergy status to penicillin; Z88.1 Allergy status to other antibiotic agents; Z88.8 Allergy status to other drugs, medicaments and biological substances; Z88.2 Allergy status to sulfonamides

== ENCOUNTER 2016-03-06 21:59 | Emergency (ER) | payer OTHER ==
[2016-03-06 22:20] VITALS: BP 139/56; PULSE 105; RESP 16; O2SAT 96
[2016-03-06 22:44] VITALS: BP 144/85; PULSE 85; RESP 22; O2SAT 95
--- NOTE | 2016-03-06 23:14 | ED.REPORT ---
HPI-General Illness Date of Service Mar 06, 2016 ED Provider: Dr. Earl Sim D.O. A 55 year old female with an extensive medical history including diabetes, PTSD , depression, chronic pain, dependant personality disorder, [place] 1 factitious disorder and [place] II borderline personality presents to the ED via EMS because her neighbors heard her moaning outside of her apartment. Per EMS the patient continued to moan and wouldn't answer questions en route. She has no specific complaints at this time beyond requesting a drink of water. This patient is a frequent visitor to the ED with four visits in the last 10 days, most recently on 03/04/16 for psychosis. Nursing Notes Stated Complaint: MOANING Chief Complaint: General Complaint Nursing Notes Reviewed: Yes Allergies: Coded Allergies: Penicillins (Verified Allergy, Severe, HIVES, 02/28/16) Quinolones (Verified Allergy, Severe, FACIAL SWELLING, 02/28/16) divalproex sodium (Verified Allergy, Severe, Dizziness, 02/28/16) levofloxacin (Verified Allergy, Severe, FACIAL SWELLING, 02/28/16) lithium (Verified Allergy, Severe, Dizziness, anxiety, and confusion, ) sulfamethoxazole (Verified Allergy, Severe, Passed out, 02/28/16) trimethoprim (Verified Allergy, Severe, Passed out, 02/28/16) duloxetine (Verified Allergy, Intermediate, makes me looney, 02/28/16) nitrofurantoin (Verified Allergy, Unknown, "all the side effects", 02/28/16) duloxetine HCl (Verified Adverse Reaction, Severe, CONFUSION, 02/28/16) pregabalin (Verified Adverse Reaction, Severe, CONFUSION, 02/28/16) Scheduled ([albuterol inhaler]) TID Bethanechol Chloride (Bethanechol Chloride) 10 Mg Tablet 20 MG PO TIDAC Cholecalciferol (Vitamin D3) (Vitamin D3) 3,000 Unit Tablet 3,000 UNIT PO DAILY Gabapentin (Gabapentin) 300 Mg Capsule 900 MG PO QID Hydroxychloroquine Sulfate (Hydroxychloroquine Sulfate) 200 Mg Tablet 400 MG PO DAILY Insulin Glargine (Lantus U100 Insulin Vial) 100 Unit/Ml Vial 18 UNIT SUBQ HS Insulin Human Lispro (HumaLOG U100 Insulin Vial) 100 Unit/Ml Unit 0 UNIT SUBQ WMHS Check blood sugars before meals and at bedtime. Use correction factor only before meals. Blood Sugar Lispro Correction: <151, 0 units; 151-175, 1 unit; 176-200, 2 units; 201-225, 3 units; 226-250, 4 units; 251-275, 5 units; 276-300 , 6 units; 301-325, 7 units; 326-350, 8 units; 351-375, 9 units; 376-400, 10 units; >400, 12 units. Levothyroxine (Levothyroxine) 200 Mcg Tablet 200 MCG PO DAILY Magnesium Oxide (Magnesium Oxide) 400 Mg Tablet 400 MG PO BID Metformin (Glucophage) 1,000 Mg Tablet 1,000 MG PO BID Methocarbamol (Robaxin-750) 750 Mg Tablet 750 MG PO TID Mycophenolate Mofetil (Cellcept) 500 Mg Tablet 1,000 MG PO BID Omeprazole (Omeprazole) 20 Mg Capsule.dr 20 MG PO DAILY Prazosin (Minipress) 1 Mg Capsule 1 MG PO DAILY Prazosin (Minipress) 2 Mg Capsule 2 MG PO HS Prednisone (PredniSONE) 10 Mg Tablet 10 MG PO DAILY Quetiapine Fumarate (Quetiapine Fumarate) 100 Mg Tablet 100 MG PO DAILY Quetiapine Fumarate (Quetiapine Fumarate) 100 Mg Tablet 200 MG PO HS Ropinirole (Requip) 0.5 Mg Tablet 0.5 MG PO HS Scheduled PRN Albuterol/Ipratropium (Combivent Respimat Inhal [place]) 120 Spr/4 Gm Inhaler 1 PUFF IH QID PRN PRN For Shortness of Breath General Time Seen by MD: 23:14 Chief Complaint Other (Moaning) Hx Obtained From: EMS Unable to Obtain Hx: Patient condition, Uncooperative Arrived By: Ambulance Sudden in Onset?: Yes Onset Occurred: Just prior to arrival Symptom Duration: Since onset Pertinent Negative: Relieved by nothing Context Related History: Reports Depression, Reports Diabetes mellitus, Reports Psychiatric history Recent Healthcare: Recent doctor visit Similar Sx Previous: Yes Past Medical History Past Medical History [place] Fibromyalgia, nerve Hypercholesterolemia. Hypothyroidism. History of bilateral pulmonary emboli in the past. 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 PTSD. Depression. Anxiety. Previous suicide attempt. History of chronic urinary retention. 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 Dad apparently had CABG x4 and brother had at least an angiogram, not sure whether he had an intervention or not. Smoking History Former Smoker Social History Pt denies alcohol use when prompted, but admits to using alcohol on seperate occaisions. Records indicate history of polysubstance abuse Other Social History: Frequent ED visitor, Lives alone, Local resident Ambulatory Status Independent Review of Systems Unable to Obtain ROS Uncooperative, Mental status Full Review of Systems Constitutional: Denies: Fever Respiratory: Denies: Dyspnea on exertion Cardiovascular: Denies: Chest pain, Dyspnea on exertion Female: Reports: Urinary frequency Psychiatric: Denies: Homicidal ideation, Suicidal ideation Physical Exam Vital Signs Vital Signs Date Time Temp Pulse Resp B/P Pulse Ox O2 Delivery O2 Flow Rate FiO2 03/07/16 04:19 37.1 101 18 144/92 99 Room Air 03/07/16 03:46 37.1 101 18 144/92 99 Room Air 03/06/16 22:44 85 22 144/85 95 Room Air 03/06/16 22:20 105 16 139/56 96 Room Air Initial VS: Reviewed Head / Eyes: Atraumatic, Normocephalic ENT: Conjunctiva normal, No scleral icterus Neck: Supple, Full range of motion Skin: Warm, Dry, No cyanosis Psychiatric: Mood/affect normal, Behavior normal, Normal thought content General/Constitutional: Awake, Alert Interpretation & Diagnostics URINE DIPSTICK 1.025 sp gravity 5 pH - Leukocytes + Nitrites 100++ Protein 1000 Glucose + Ketones - Urobilinogen 250 Blood Lab Results Interpretation Result Diagram: 03/06/16 2317 03/06/16 2317 Test 03/06/16 23:17 03/06/16 23:47 03/07/16 03:15 White Blood Count 14.6th/mm3 (3.8-10.1) Red Blood Count 5.66mil/mm3 (3.90-5.20) Hemoglobin 15.2g/dL (12.0-15.6) Hematocrit 45.5% (35.0-46.0) Mean Corpuscular Volume 80.4fL (81-100) Mean Corpuscular Hemoglobin 26.9pg (27.0-35.0) Mean Corpuscular Hemoglobin Concent 33.4% (32.0-37.0) Red Cell Distribution Width 19.8% (12.3-15.4) Platelet Count 537bil/L (150-400) Neutrophils (%) (Auto) 78.3% (40-74) Lymphocytes (%) (Auto) 8.9% (14-46) Monocytes (%) (Auto) 9.7% (4-12) Eosinophils (%) (Auto) 0% (0-5) Basophils (%) (Auto) 1.7% (0-3) Sodium Level 139mEq/L (134-144) Potassium Level 4.2mEq/L (3.5-5.2) Chloride Level 98mEq/L (97-108) Carbon Dioxide Level 21mmol/L (18-29) Blood Urea Nitrogen 31mg/dL (6-24) Creatinine 0.58mg/dL (0.57-1.00) Estimat Glomerular Filtration Rate 156mL/min (>59) Glucose Level 318mg/dL (60-99) Calcium Level 9.7mg/dL (8.5-10.1) Total Bilirubin 0.3mg/dL (0.0-1.2) Aspartate Amino Transf (AST/SGOT) 32U/L (0-50) Alanine Aminotransferase (ALT/SGPT) 25U/L (0-32) Alkaline Phosphatase 84U/L (25-150) Total Protein 7.7g/dL (6.4-8.4) Albumin 4.1g/dL (3.4-5.0) Hold Purple Top Tube Received (Received) Hold Blue Top Tube Received (Received) Urine Color Yellow (YELLOW) Urine Appearance Cloudy (CLEAR,HAZY) Urine pH 5.5 (5.0-8.0) Urine Specific [place] >1.030 (1.003-1.035) Urine Protein 30mg/dL (NEG,TRACE) Urine Glucose (UA) 500mg/dL (NEGATIVE) Urine Ketones 15mg/dL (NEGATIVE) Urine Occult Blood Small (NEGATIVE) Urine Nitrite Positive (NEGATIVE) Urine Bilirubin Negative (NEGATIVE) Urine Urobilinogen Normalmg/dL (NORMAL) Urine Leukocyte Esterase Negative (NEGATIVE) Urine RBC 3-10/hpf (0-2) Urine WBC 6-10/hpf (0-5) Urine Epithelial Cells Few/hpf (NONE-MOD) Urine Crystals None seen (NONE SEEN) Urine Bacteria Many/hpf (NONE-FEW) Urine Hyaline Casts None/lpf (NONE) Urine Granular Casts None seen (NONE SEEN) Urine Waxy Casts None seen (NONE SEEN) Urine Red Blood Cell Casts None seen (NONE SEEN) Urine White Blood Cell Casts None seen (NONE SEEN) Urine Mucus None seen (None Seen) Urine Trichomonas None seen (NONE SEEN) Urine Yeast None (NONE SEEN) Urinalysis Comment None Urine Culture Reflexed Indicated Re-Eval/Medical Decision Med Decision/Clinical Course Tabitha presents via EMS. Evidently she would not tell the medics what was wrong. I know Tabitha pretty well and she told me she was just thirsty. She states she has been urinating a lot. She will did not admit to being suicidal or homicidal. On exam she did have dry lips we started IV fluids. Beyond that her exam was normal. Laboratory work shows a leukocytosis. She is also hyperglycemic. She does not have an anion gap. Her urine dip is positive. She has been fluid resuscitated and I will start her on IV ceftriaxone. I plan on putting her on twice daily Omnicef for 7 days for possible pyelonephritis/ UTI. She is afebrile. She has stable vital signs. We have no hospital beds. She will be treated with a 24-hour dose of antibiotics. Anticipate discharge after the antibiotics are in. Source of Hx: Old records Discharge & Departure Shift Change Sign-Out Patient Care Transferred: Yes (Dr. Fulton) Discussed Complaint(s): Yes Laboratory Evaluation: Done, results pending Response to Therapy: Improved Primary Impression: Psychosis Psychosis type: unspecified psychosis type Qualified Code: F29 - Unspecified psychosis not due to a substance or known physiological condition Additional Impressions: Leukocytosis Leukocytosis type: unspecified Qualified Code: D72.829 - Elevated white blood cell count, unspecified Urinary tract infection Urinary tract infection type: acute cystitis Hematuria presence: with hematuria Qualified Code: N30.01 - Acute cystitis with hematuria Disposition: Home Discharge Condition All VS Reviewed: Yes Condition: Stable Patient Instructions: Urinary Tract Infection in Women (DC) Additional Instructions: Omnicef twice daily for 7 days. Drink plenty of liquids. We will culture your urine. I would like you to set up a follow-up with your primary care physician for 48-72 hours to review the urine culture. Continue all of your medications. Return if any problems or any worsening symptoms. Read the aftercare instructions given. Referrals: [facility] (PCP) Care Transferred to: Dr. Fulton Care Transferred at: 03:45 Scribe Attestation Portions of this note were transcribed by Jada Bullock. I, Dr. Sim, personally performed the history, physical exam, and medical decision-making; I reviewed and confirmed the accuracy of the information in the transcribed note. Signed by: Haroon Jang, 03/07/2016, 02:55 copies to: [facility] Earl Sim DO Mar 06, 2016 23:14 JADA BULLOCK Mar 06, 2016 23:35
[2016-03-06 23:39] LABS: BASOPHILS % (AUTO) 1.7 % (0-3); EOSINOPHILS % (AUTO) 0 % (0-5); MONOCYTES % (AUTO) 9.7 % (4-12); Mean Corpuscular Hemoglobin 26.9 pg (27.0-35.0); Mean Corpuscular Volume 80.4 fL (81-100); NEUTROPHILS % (AUTO) 78.3 % (40-74); Platelet Count 537 bil/L (150-400)
[2016-03-07] MEDS ORDERED: cefTRIAXone Inj 2,000 MG in IV Premix 1 EACH IV ONE (03:35)
[2016-03-07 03:41] LABS: APPEARANCE,URINE CLOUDY (CLEAR,HAZY); COLOR,URINE YELLOW (YELLOW); OCCULT BLOOD,URINE SMALL (NEGATIVE); PH,URINE 5.5 (5.0-8.0); UROBILINOGEN,URINE NORMAL (NORMAL)
[2016-03-07 03:46] VITALS: BP 144/92; PULSE 101; RESP 18; O2SAT 99
[2016-03-07 04:19] VITALS: BP 144/92; PULSE 101; RESP 18; O2SAT 99
== END 2016-03-07 04:17 | disposition home or self-care (01) ==
LOC: EDUNIT# 21:59 → SED 21:59 → EDBD 21:59 → SED 03-07 04:17
DX: F29 Unspecified psychosis not due to a substance or known physiological condition (principal); N30.01 Acute cystitis with hematuria; D72.829 Elevated white blood cell count, unspecified; B96.20 Unspecified Escherichia coli [E. coli] as the cause of diseases classified elsewhere; E11.59 Type 2 diabetes mellitus with other circulatory complications; I25.2 Old myocardial infarction; K21.9 Gastro-esophageal reflux disease without esophagitis; E78.5 Hyperlipidemia, unspecified; E03.9 Hypothyroidism, unspecified; Z79.4 Long term (current) use of insulin; Z79.84 Long term (current) use of oral hypoglycemic drugs; Z87.891 Personal history of nicotine dependence; Z88.0 Allergy status to penicillin; Z88.1 Allergy status to other antibiotic agents; Z88.8 Allergy status to other drugs, medicaments and biological substances; Z88.2 Allergy status to sulfonamides
CPT/HCPCS: 36415; 80053; 81000; 85025; 87086; 87088; 87186; 96365; 99284; J0696

== ENCOUNTER 2016-03-07 11:42 | Inpatient (IN) | payer OTHER ==
[~2016-03-07] VITALS: Ht 175.3 cm; Wt 77.0 kg
--- NOTE | 2016-03-07 11:53 | ED.REPORT ---
HPI-General Illness Date of Service Mar 07, 2016 ED Provider: Yaneli Garg MD Pt is a 55 y/o female w/ a hx of extremely frequent ED visits, malingering, factitious disorder, personality disorder, PTSD, depression, anxiety, hypothyroid, [place], diabetes, presenting to the ED due to bizarre behavior today. The pt was seen here last night and diagnosed with a UTI and started on antibiotics. The urine has no growth to date. According to the school social worker, the pt was unable to be placed last night and was discharged. A cab was ordered and she was sent back to the listed address. Apparently she can not live there anymore because she was evicted. Police then picked her up and dropped her outside the hospital at around 0700. A counselor was meant to come pick her up but never did. According to security, she has been wandering around the hospital aimlessly. She was brought in to the ED today with an LRO and hopes of inpatient psychiatric admission or placement. She is non-verbal today and therefore further history unable to be obtained. Of note, her last primary diagnosis from last psychiatric admission 02/25/16 - is malingering. Nursing Notes Stated Complaint: ALTERED MENTAL STATUS Nursing Notes Reviewed: Yes Allergies: Coded Allergies: Penicillins (Verified Allergy, Severe, HIVES, 02/28/16) Quinolones (Verified Allergy, Severe, FACIAL SWELLING, 02/28/16) divalproex sodium (Verified Allergy, Severe, Dizziness, 02/28/16) levofloxacin (Verified Allergy, Severe, FACIAL SWELLING, 02/28/16) lithium (Verified Allergy, Severe, Dizziness, anxiety, and confusion, ) sulfamethoxazole (Verified Allergy, Severe, Passed out, 02/28/16) trimethoprim (Verified Allergy, Severe, Passed out, 02/28/16) duloxetine (Verified Allergy, Intermediate, makes me looney, 02/28/16) nitrofurantoin (Verified Allergy, Unknown, "all the side effects", 02/28/16) duloxetine HCl (Verified Adverse Reaction, Severe, CONFUSION, 02/28/16) pregabalin (Verified Adverse Reaction, Severe, CONFUSION, 02/28/16) Scheduled ([albuterol inhaler]) TID Bethanechol Chloride (Bethanechol Chloride) 10 Mg Tablet 20 MG PO TIDAC Cholecalciferol (Vitamin D3) (Vitamin D3) 3,000 Unit Tablet 3,000 UNIT PO DAILY Gabapentin (Gabapentin) 300 Mg Capsule 900 MG PO QID Hydroxychloroquine Sulfate (Hydroxychloroquine Sulfate) 200 Mg Tablet 400 MG PO DAILY Insulin Glargine (Lantus U100 Insulin Vial) 100 Unit/Ml Vial 18 UNIT SUBQ HS Insulin Human Lispro (HumaLOG U100 Insulin Vial) 100 Unit/Ml Unit 0 UNIT SUBQ WMHS Check blood sugars before meals and at bedtime. Use correction factor only before meals. Blood Sugar Lispro Correction: <151, 0 units; 151-175, 1 unit; 176-200, 2 units; 201-225, 3 units; 226-250, 4 units; 251-275, 5 units; 276-300 , 6 units; 301-325, 7 units; 326-350, 8 units; 351-375, 9 units; 376-400, 10 units; >400, 12 units. Levothyroxine (Levothyroxine) 200 Mcg Tablet 200 MCG PO DAILY Magnesium Oxide (Magnesium Oxide) 400 Mg Tablet 400 MG PO BID Metformin (Glucophage) 1,000 Mg Tablet 1,000 MG PO BID Methocarbamol (Robaxin-750) 750 Mg Tablet 750 MG PO TID Mycophenolate Mofetil (Cellcept) 500 Mg Tablet 1,000 MG PO BID Omeprazole (Omeprazole) 20 Mg Capsule.dr 20 MG PO DAILY Prazosin (Minipress) 1 Mg Capsule 1 MG PO DAILY Prazosin (Minipress) 2 Mg Capsule 2 MG PO HS Prednisone (PredniSONE) 10 Mg Tablet 10 MG PO DAILY Quetiapine Fumarate (Quetiapine Fumarate) 100 Mg Tablet 100 MG PO DAILY Quetiapine Fumarate (Quetiapine Fumarate) 100 Mg Tablet 200 MG PO HS Ropinirole (Requip) 0.5 Mg Tablet 0.5 MG PO HS Scheduled PRN Albuterol/Ipratropium (Combivent Respimat Inhal [place]) 120 Spr/4 Gm Inhaler 1 PUFF IH QID PRN PRN For Shortness of Breath General Time Seen by MD: 11:51 Chief Complaint Other (Bizarre behavior) Hx Obtained From: Police Unable to Obtain Hx: Patient condition, Uncooperative Arrived By: Walk-in Past Medical History Past Medical History Notes: Primary diagnosis of malingering from most recent psych admission, 02/25/16 - 02/27/16 Past Medical History VT Diabetes Hyperlipidemia GERD Fibromyalgia, nerve Hypercholesterolemia. Hypothyroidism. History of bilateral pulmonary emboli in the past. 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 PTSD. Depression. Anxiety. Previous suicide attempt. History of chronic urinary retention. Chronic pain syndrome with narcotic habituation (on Methadone) Reported Systemic Lupus on chronic steroids and [place] Borderline personality disorder Dependent personality disorder [place] 1 Factitious disorder and [place] II Borderline personality Malingering Past Surgical History Complete bilateral knee replacement umbilical hernia Reports: Cholecystectomy, Hysterectomy Family History Both brother and dad had a heart attack at age 45. Dad apparently had CABG x4 and brother had at least an angiogram, not sure whether he had an intervention or not. Smoking History Former Smoker Social History Pt denies alcohol use when prompted, but admits to using alcohol on seperate occaisions. Records indicate history of polysubstance abuse Other Social History: Frequent ED visitor, Lives alone, Local resident Ambulatory Status Independent Review of Systems Unable to Obtain ROS Uncooperative, Mental status Physical Exam Vital Signs Vital Signs Date Time Temp Pulse Resp B/P Pulse Ox O2 Delivery O2 Flow Rate FiO2 03/07/16 12:03 36.6 92 16 131/79 98 Room Air 03/07/16 11:57 36.6 92 16 131/79 98 Room Air Initial VS: Reviewed Head / Eyes: Atraumatic, Normocephalic, PERRL ENT: Mucous membranes moist Neck: Full range of motion Respiratory: Breath sounds normal, Clear to auscultation, No respiratory distress Cardiovascular: Regular rate & rhythm, Heart sounds normal, Intact distal pulses Abdomen / GI: Soft, Non-tender, No guarding, No rebound, No distention Skin: Warm, Dry Neurologic: Alert General/Constitutional: Awake, No acute distress, Not toxic appearing Abnormal Mood/Affect: Positive: Flat affect Nonverbal No eye contact Interpretation & Diagnostics Lab Results Interpretation Lab Results Interpretation: Blood work done less than 12 hours ago. Was unremarkable. Recent urine culture not growing anything as of today. Bedside glucose = 246 Breathalyzer = 0 Urine tox: negative Re-Eval/Medical Decision Time of Eval: 14:52 Re-Evaluation/Progress Note: Remains comfortable and cooperative throughout stay. Will sign out patient at end of shift at 1500 in anticipation for ALEXA. Discharge & Departure Primary Impression: Borderline personality disorder Referrals: [facility] (PCP) Care Transferred to: Dr. Washington - Anticipation of ALEXA Care Transferred at: 15:00 Haroon Attestation Portions of this note were transcribed by Mick Ribeiro. I, Dr. Garg personally performed the history, physical exam and medical decision-making; I reviewed and confirmed the accuracy of the information in the transcribed note. Signed by Haroon Hawkins, 03/07/16 - 1200 copies to: [facility] Yaneli Garg MD Mar 07, 2016 11:53 MICK RIBEIRO Mar 07, 2016 12:10
[2016-03-07 11:57] VITALS: BP 131/79; PULSE 92; RESP 16; O2SAT 98
[2016-03-07 12:03] VITALS: BP 131/79; PULSE 92; RESP 16; O2SAT 98
[2016-03-07 19:49] VITALS: BP 129/79; PULSE 86; RESP 16; O2SAT 98
[2016-03-07] MEDS ORDERED: Alum-Mag Hydrox-Simeth 30 mL Suspension PO PRN (20:00)
[2016-03-07] MEDS ORDERED: Benzocaine-Menthol Lozenge 2/Pkg PO PRN (20:00)
[2016-03-07] MEDS ORDERED: Magnesium Hydroxide 10 mL Oral Concentration PO PRN (20:00)
[2016-03-07] MEDS: Insulin GLARgine 100 Unit/mL Syringe SUBQ SCH (21:00)
--- NOTE | 2016-03-07 21:08 | NUR ---
Nursing Admission Note Pt arrived to unit 1900 via WC accompanied by security and MHA tech from ER. Pt is detained and here on a petition to revoke her 90 day LRO for grave disability. Pt was recently lost her apartment and is now homeless and has since been frequenting the ER and police station. Per report from ER was uncooperative and making bizarre statements. Upon arrival to unit Pt appears disheveled and uncooperative with the admission process. Pt was unwilling to sign any consent forms or safety contracts. This software writer attempted to do nursing admission assessment and pt was unwilling to answer very few questions. Pt just kept stating "I need to be on the medical floor". "I don't like my room". When asked about her recent eviction from apartment pt just stated "its because Im sick". Pt blood glucose on admission 162. Pt was oriented to room and had rosemary snack and is currently in room resting in room. Q15 min safety checks per protocol, [facility] safety, behavior, safety
--- NOTE | 2016-03-08 04:13 | NUR ---
Nursing Note Noc- Pt ate rosemary snack and was compliant with HS meds, No prn's given and pt returned to room shortly after with noted sleep time 2200. 6 hr uninterrupted sleep, no distress noted. Q15 min safety checksper protocol, WC sleep, behavior, safety
--- NOTE | 2016-03-08 05:13 | NUR ---
Pt arrived at 1900 to unit. Refused to stand upon arrival stating she was unable. With staff assist she got into chair in dining room. Pt refused to sign paperwork. Walked to room. Pt confused and began demanding various things such as to go to medical floor, change her room on this floor, a wheelchair, ect. Asleep at 2200. Pt observed every 15 minutes as ordered.
[2016-03-08] MEDS: Pantoprazole 40 mg ER24 Tablet PO SCH (07:36)
[2016-03-08 09:00] VITALS: BP 109/71; PULSE 108; RESP 16
[2016-03-08] MEDS: predniSONE 10 mg Tablet PO SCH (09:04)
[2016-03-08] MEDS: Hydroxychloroqine 200 mg Tablet PO SCH (09:07)
[2016-03-08] MEDS: Insulin LISPRO 300 Unit/3 mL Inj SUBQ SCH ×2 (12:31→17:19)
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
--- NOTE | 2016-03-08 14:23 | NUR ---
Nursing Note [id number] Behavior S/O: Pt out for meals & snacks. Appetite good. Pt has been using the telephone to make personal calls. She is able to make valid requests from staff. Pt ambulates with walker with steady gait. Conversation tracking clear & organized with normal rate & rhythm. Pt states, "I want a different doctor. Dr. Stinson & I don't see eye to eye. He just looks at me & laughs. I've been having hallucinations about ghosts in my house." Blood sugar at 1200 was 239. Sliding scale insulin given. A: Pt has been able to care for self. P: Provide supportive environment. Monitor medications & effects.
--- NOTE | 2016-03-08 18:59 | NUR ---
Observations [id number] Pt was resting in bed upon start of shift. Pt attended all meals, eating 100%. Mood appeared anxious regarding a recent court case and stated that she would be missing her appointment with her shove up tomorrow. Pt asked for a phone book and called a few numbers. She did laundry and took a shower. Pt appeared agitated in the afternoon regarding pain in her neck and her leg that she said was bothering her. Pt made multiple requests during the day of staff. Pt was observed every 15 minutes of shift as directed.
[2016-03-08] MEDS: Insulin GLARgine 100 Unit/mL Syringe SUBQ SCH ×2 (22:04→22:19)
--- NOTE | 2016-03-08 22:45 | NUR ---
Nurses PRN Patient requested and received Trazadone 100mg for sleep, refrigeration mechanic helper to assess response. Her Blood Sugar at HS = 230 and she received scheduled Lantus Insulin.
--- NOTE | 2016-03-09 03:59 | NUR ---
Pt out on unit some this evening. Interacted with others. Asleep at 2315. Pt observed every 15 minutes as ordered.
--- NOTE | 2016-03-09 04:00 | NUR ---
nursing, nights, 11-7 s/o- has appeared to sleep after 2315. up for a drink at 0020 and easily returned to sleep. assessed q 15 minutes. a- no apparent distress. p- monitor behavior/emotional state, quality, times and amount of sleep, use and effect of medication. chika
[2016-03-09] MEDS: Pantoprazole 40 mg ER24 Tablet PO SCH (07:43)
[2016-03-09] MEDS: Hydroxychloroqine 200 mg Tablet PO SCH (07:55)
[2016-03-09] MEDS: predniSONE 10 mg Tablet PO SCH (07:56)
[2016-03-09] MEDS: Insulin LISPRO 300 Unit/3 mL Inj SUBQ SCH ×4 (08:06→17:15)
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
[2016-03-09 14:25] VITALS: BP 122/79; PULSE 95; RESP 16
--- NOTE | 2016-03-09 17:39 | NUR ---
Nursing Dayshift: S/O: Patient demanding at times wanting staff to wait on her in her room. Using call light often making requests. Will get up on her own initiative to come to the dining room for snacks and meals with a very good appetite. A: Forlorn. Needy. P: CPOC. Monitor mood and behavior. Set limits.
--- NOTE | 2016-03-10 04:55 | NUR ---
Nursing Noc Patient presenting appropriate and relaxed in milieu this shift. Out for evening snacks and attending to ADLs. Pt refused to participate in evening wrap up group. Taking medications as prescribed. Patient noted to be sitting with other patients during evening snack, but interacting with same minimally as possible. Antibiotics ordered by MD for UTI. Pharmacy called to inform that said antibiotic is not available. MD to be made aware. Continuing to monitor mood behavior, emotional state and sleep times by Q15 minute safety checks. CP
--- NOTE | 2016-03-10 05:32 | NUR ---
Pt out on unit very little this evening. Asleep at 2145. Pt observed every 15 minutes as ordered.
[2016-03-10] MEDS: predniSONE 10 mg Tablet PO SCH (08:05)
[2016-03-10] MEDS: Hydroxychloroqine 200 mg Tablet PO SCH (08:06)
[2016-03-10] MEDS: Insulin LISPRO 300 Unit/3 mL Inj SUBQ SCH ×3 (08:12→17:25)
[2016-03-10] MEDS: Pantoprazole 40 mg ER24 Tablet PO SCH (08:20)
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
[2016-03-10 14:23] VITALS: BP 125/79; PULSE 87; RESP 16
[2016-03-10] MEDS: diphenhydrAMINE 50 mg Capsule PO PRN (15:30)
--- NOTE | 2016-03-10 18:11 | NUR ---
Nursing Notes [id number] S: "I need something for anxiety and for the voices". "Something is wrong". "I am scared, I don't know where I am". O: Isolative today, out for meals. Patient did shower. Taking medications but slowly and hesitantly. Patient reporting she doesn't know where she is, however, she uses the call light to ask the time and if it "is time for snacks yet". A: Patient statements do not appear consistent with behavior. Patient appears to be manipulative at times. P: Monitor for safety and response to treatment. Follow plan of care. Addendum: 03/10/16 at 1812 by JHONNY DICK RN [facility] Tylenol 650 mg po @ 1500 for pain 10/04. Not effective. Benadryl 50 mg po for anxiety @ 1540.
--- NOTE | 2016-03-10 19:00 | NUR ---
Observations 0700 to 1900 Pt maintained behavioral control throughout the shift. Pt is flat, anxious, isolative, needy. Pt spent much of day in bed. Pt complains of various pains and frequently requests medications throughout day. There were more requests as the day progressed. So far pt has been redirectable. Pt ate 100% of meals and was observed every 15 minutes as ordered.
--- NOTE | 2016-03-10 20:05 | NUR ---
Cardiothoracic Surgeon./ c.m. S./O.: tried to meet with pt. in her room to work on Treatment plan and goals. Pt. was in bed quiet. She refused to talk, refused to open her eyes. Later she came out to the Dining room and sat there alone. A.: pt. is isolative, uncooperative, manipulative. P.: monitor behavior, provide safety in the unit, follow care plan.
[2016-03-10] MEDS: Insulin GLARgine 100 Unit/mL Syringe SUBQ SCH (20:07)
--- NOTE | 2016-03-11 04:27 | NUR ---
Observations from [id number] Pt is isolative, uncooperative, manipulative. Pt has multiple requests for staff such as "can you get me some water" which are things pt is capable of doing, but wants someone to do for her. Pt isolated and ignores most comments or questions directed at her. Pt went to wrap up group but when asked to talk, she sat there and said nothing and wouldn't make eye contact. Pt appeared asleep 2244 and has appeared to stay asleep throughout the night. Pt has been monitored every 15 minutes as directed.
--- NOTE | 2016-03-11 05:57 | NUR ---
Nursing Noc Pt presents isolative and entitled, using call light with requests of fluids, not willing to talk in group or answer simple assessment questions. Continuing to monitor, mood, behavior, emotional state and sleep times. Q15 minute safety checks throughout the shift. CP
[2016-03-11] MEDS: predniSONE 10 mg Tablet PO SCH (08:53)
[2016-03-11] MEDS: Insulin LISPRO 300 Unit/3 mL Inj SUBQ SCH ×3 (08:56→17:51)
[2016-03-11] MEDS: Pantoprazole 40 mg ER24 Tablet PO SCH (09:04)
[2016-03-11 09:05] VITALS: BP 122/81; PULSE 100; RESP 16
[2016-03-11] MEDS: Hydroxychloroqine 200 mg Tablet PO SCH (09:05)
--- NOTE | 2016-03-11 11:48 | NUR ---
DAYS 7-7 S/O-Patient up before my shift started at 0700, asking for morning medications x3. At lunch Patient in room will not respond verbally to nurse, appears withdrawn, but comfortable. Patient up and eating lunch but quiet with other patients and staff. A-Morning medications given per request of patient. Pre meal blood sugar at lunch 261, 5 units coverage given. P-Continue with care plan of psy medication, DM control, and oral antibiotics for UTI.
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
--- NOTE | 2016-03-11 13:17 | NUR ---
Rehabilitation Therapy Aide./ cRociom. S./O.: met with pt. in her room before lunch. Pt. was in bed with her eyes half closed. She refused to talk but made a few facial movement. She refused to work on Treatment plan and goals. She was out of her room a few times but didn't communicate with staff or peers. A.: pt. is isolative, uncooperative, quiet, manipulative. P.: monitor behavior, encourage pt. to take meds; follow care plan.
[2016-03-11] MEDS: Insulin GLARgine 100 Unit/mL Syringe SUBQ SCH (20:49)
--- NOTE | 2016-03-11 20:57 | NUR ---
Obs Dayshift Pt spent most of the shift in bed. Not participating in groups or activities. Pt appears depressed, latent, poor eye contact, head down. Pt gets up for most meals, stayed in bed thru dinner. Not engaging w/ peers or staff very much. Ok ADL's, Ok meals
--- NOTE | 2016-03-11 21:44 | NUR ---
REFUSED ALL PO HS MEDICATIONS Approached pt. in her room several times this evening, pt. laying in bed w/eyes closed. Attempted to arouse her multiple times w/loud voice, lights on, and shaking her arm. Pt. remained lying in bed w/eyes closed. Respirations WNL. She did extend her finger to this jingle writer when this jingle writer asked to take her HS FSBS (150). She also slightly moved her arm toward this jingle writer when Lantus injection was offered. However, she did not acknowledge any offers of PO medications. Offered pt. education on health consequences of not taking medications as ordered and also reminded pt. of treatment plan and expectations to be med compliant. Pt. remained motionless w/eyes closed.
--- NOTE | 2016-03-12 05:08 | NUR ---
Observations from [id number] Pt was in her room the entire shift. Pt is in an almost catatonic state, and is uncommunicative with staff. Pt does not respond verbally or make eye contact. Pt appeared asleep 1800 and has not left her bed at all this shift.
--- NOTE | 2016-03-12 06:32 | NUR ---
Nursing 7p-7a Pt has remained isolative to her room and slept all shift. She remains noncommunicative to staff. She refused her evening PO medications but did receive her IM Lantus. Total sleep over 12 hours.
[2016-03-12] MEDS: Insulin LISPRO 300 Unit/3 mL Inj SUBQ SCH ×3 (08:40→16:54)
[2016-03-12 10:15] VITALS: BP 135/84; PULSE 87
[2016-03-12 10:30] VITALS: BP 135/84; PULSE 87; RESP 16
--- NOTE | 2016-03-12 11:11 | NUR ---
Refusing morning medications Pt. refused morning medications by not responding to nurse instructions and requests. She stayed in bed, awake, still, with eyes closed. As nurse walked out of her room, nurse caught a glimpse of pt. opened her eyes briefly. Blood glucose was 147 this morning, no insulin subQ coverage needed for BG < 150. Addendum: 03/12/16 at 1506 by ANGEL QUINTANILLA RN Notified Dr. Garnett about pt. refusal to take medications and behavior.
[2016-03-12] MEDS: predniSONE 10 mg Tablet PO SCH (11:17)
[2016-03-12] MEDS: Pantoprazole 40 mg ER24 Tablet PO SCH (11:17)
[2016-03-12] MEDS: Hydroxychloroqine 200 mg Tablet PO SCH (11:18)
--- NOTE | 2016-03-12 16:08 | NUR ---
Furnace Tapper./ c.m. S./O.: met with pt. and MD together. Pt. was in bed with her eyes closed but she wasn't sleeping. She refused to talk. She spent all time in her room. A.: pt. is selectively mute, manipulative and gamy. P.: monitor behavior, encourage pt. to take meds and to stay away from her bed; follow care plan.
--- NOTE | 2016-03-12 18:34 | NUR ---
Nursing: o700 to 1900. Tabitha has been lying on her bed at all times today except to get up to BR. She has eyes closed but eyelids flicker or she grimaces when staff interact with her verbally. Occasionally she moans and groans. She did sit up and take one medication at dinner but did not take the rest of her medications all day. Did not eat any meals. A: Inadequate nutritional intake. Minimally responsive. Only ADL she performs is toileting. Not med compliant. P: continue to encourage Tabitha to participate in own ADL's and unit activities.
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
--- NOTE | 2016-03-12 20:40 | NUR ---
Obs Dayshift Pt spent the entire day in bed, refusing meals. Pt was in her bathroom during a couple 15 min checks, other than that she was in bed. Pt pretends to be sleeping when staff try to engage with her. During approx 1.5 hrs in the afternoon she was seen and heard wrestling around in bed, moaning, and crying but refused to explain or talk w/ staff. Pt starting wailing during her dinner time med pass. Poor ADL's, No meals
[2016-03-12] MEDS: Insulin GLARgine 100 Unit/mL Syringe SUBQ SCH (21:06)
--- NOTE | 2016-03-13 01:58 | NUR ---
Observations 1900 to 0700 Pt was in her room when my shift stared and has remained there for the rest of the night. Pt first appeared asleep at 20:45 and was observed every 15 minutes through the night as directed.
--- NOTE | 2016-03-13 06:58 | NUR ---
Nursing Note NOC Patient was in room, asleep, or resting in bed, all of this NOC shift. 15 minute checks. No requests for PRNs. Blood glucose: 0800 147; noon 152; 1600 133; 1999 151.
[2016-03-13] MEDS: Pantoprazole 40 mg ER24 Tablet PO SCH (07:39)
[2016-03-13] MEDS: Insulin LISPRO 300 Unit/3 mL Inj SUBQ SCH ×3 (08:00→18:10)
[2016-03-13 08:45] VITALS: BP 133/93; PULSE 100; RESP 17
[2016-03-13] MEDS: Hydroxychloroqine 200 mg Tablet PO SCH (09:21)
[2016-03-13] MEDS: predniSONE 10 mg Tablet PO SCH (09:22)
--- NOTE | 2016-03-13 09:35 | NUR ---
Nursing: Day shift. O: Since beginning of shift, Tabitha has been lying on bed, eyes closed, not giving any verbal response to staff on approach. At 0930, caption writer and another RN approached pt, assisted her to sit up, to receive some medication in sugarfree pudding, and attempted to assist her to ambulate to the DR. Pt resisted by pulling back, buckling legs, and groaning. After going about 30 feet, pt was let go and she walked independently back to her bed and lay down. A: Pt is volitional in resisting treatment. P: Continue to encourage pt to voluntarily participate in unit activities and self-care ADL's. Assist with ADL's prn.
[2016-03-13 12:46] LABS: BASOPHILS % (AUTO) 0.2 % (0-3); EOSINOPHILS % (AUTO) 0 % (0-5); Mean Corpuscular Hemoglobin 26.2 pg (27.0-35.0); Mean Corpuscular Volume 80.8 fL (81-100); Platelet Count 631 bil/L (150-400)
[2016-03-13] MEDS: BusPIRone 15 mg Dividose Tablet PO PRN (13:32)
--- NOTE | 2016-03-13 15:11 | NUR ---
Nursing Note [id number] S: "Don't pick your nose, you need to wash your hands really well after that". "I am not yelling, but I am talking loud enough to make myself heard". O: Patient irritable with another patient. A: Pt irritable at times, entitled, can be demanding at times, bossy/judgmental with some peers. P: Monitor for safety and response to treatment. Follow plan of care.
--- NOTE | 2016-03-13 18:05 | NUR ---
Observations [id number] Pt was asleep upon start of shift. Pt remained in bed all day. She was informed of meal times but failed to respond or attend meals. Pt was given snacks/water and encouraged to attend meals and group, but pt did not. Pt finally attended dinner with encouragement from staff who wheeled her out into dining area. Pt ate no breakfast, no lunch, and 75% of dinner. Pt slept much of the day and was non responsive when asked questions. She was observed every 15 minutes of shift as directed.
--- NOTE | 2016-03-13 18:18 | NUR ---
Nursing: Day shift 0700 to 1900 S: Groans only No verbalizations noted. O: Tabitha has been observed lying on her bed the whole shift except three occasions: 10:00: Nurse sat pt up and administered a few a.m. meds. Two nurses attempted to walk pt to DR. Pt refused just as she got into the morales and walked quickly back to room. 1300: Two nurses administered meds and spongebathed pt and changed her scrub clothes. 1730: Pt sat on bedside as one nurse administered pt metformin.Then pt was wheeled out to DR and she voluntarily ate about 20 % of dinner tray. She then walked the length of [facility] morales between Dr and her bedroom with only standby assist. A: Pt is volitional in resisting care as offered. Adequate fluids. Minimal nutrition. P: Continue to encourage ADL self-car.
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
[2016-03-13] MEDS: Insulin GLARgine 100 Unit/mL Syringe SUBQ SCH (21:48)
--- NOTE | 2016-03-14 02:18 | NUR ---
Observations 1900 to 0700 Pt was in her room when my shift stared and has remained there for the rest of the night. Pt first appeared asleep at 20:15 and was observed every 15 minutes through the night as directed.
--- NOTE | 2016-03-14 06:22 | NUR ---
Nursing Noc Pt behaving in a catatonic fashion. Remained in bed and refused to interact with chief underwriter or staff this shift. Pt have court hearing today. Pt refusing medications. Pt presumed asleep at 2130 and remained asleep throughout the shift. Second opinion PRN in place but not needed this shift. Noted poor PO intake yesterday, BUN and PLT noted to be elevated. Encouraging fluids. Continuing to monitor sleep time, mood, behavior, emotional state and safety by Q15 minute safety checks.
--- NOTE | 2016-03-14 07:20 | NUR ---
NUTRITION ASSESSMENT: ASSESS:55 YO female admitted under petition for revocation of 90 day least restrictive alternative for altered mental status. A medical workup has been essentially negative with chronic abnormal lab results on CBC likely compounded by poor by mouth intake. She appeared more alert yesterday but still is not interacting, per MD. The patient struggles with chronic diabetes and lupus, but it does not appear that these issues are contributing to her current behavior. The patient's main issue appears to be PTSD and borderline personality traits. Staff noting she appears to have some aspects of catatonia and requires encouragement to eat or drink fluids. Her ADL's and PO intake are poor at this point in time. PMHx:Type II diabetes, lupus, suicide attempts x 6. DIET:Consistent carb. LABS: Reviewed. BUN 30, Glu 257. MEDICATIONS: Reviewed. NUTRITION FOCUSED PHYSICAL ASSESSMENT: GI symptoms / stool: Not noted.Joe: Not noted. Skin Integrity: Not noted. ANTHROPOMETRICS: Current Wt: 77.0 kgBMI: 25.0 kg/m2.Admit weight: 77.0 kg IBW: 65.9 kg (116.8% IBW) ESTIMATED NEEDS (DECREASED ACTIVITY): Calories: 1694 - 1925 kcal (22 - 25 kcal / kg BW) Protein: 62 - 77 g protein (0.8 - 1.0 g / kg BW) NUTRITION DIAGNOSIS: 1)Inadequate oral intake related to chronic mental illness, as evidenced by poor ADL's and PO intake since admit x 7 D. INTERVENTION: 1) Will add Glucerna to trays and add between meal snacks appropriate to consistent carbohydrate counting guidelines. MONITOR/EVALUATE: Diet / supplement tolerance, PO intake, labs, GI/nutrition status. Follow up per moderate nutrition risk guidelines.
[2016-03-14] MEDS: Pantoprazole 40 mg ER24 Tablet PO SCH (09:47)
[2016-03-14] MEDS: predniSONE 10 mg Tablet PO SCH (09:48)
[2016-03-14] MEDS: Hydroxychloroqine 200 mg Tablet PO SCH (09:51)
[2016-03-14] MEDS: Insulin LISPRO 300 Unit/3 mL Inj SUBQ SCH ×3 (10:05→16:58)
[2016-03-14 10:29] VITALS: BP 143/97; PULSE 92
--- NOTE | 2016-03-14 16:16 | NUR ---
nursing note 7am-7pm S)" I don't know where I am, how did I get here?" O)pt limp and unresponsive most of shift, changed and given a bed bath, a few min later pt stripped all her clothes off and peed a large amount in the bed, bed cleaned and pt sat in chair where she seemed to "awaken" able to transfer self and put her pants on, eyes open and responsive, took prescribed medication at that time and requested milk, hair washed and fully bathed, currently dressed in clean scrubs, blood sugar remains elevated with insulin coverage given A) appears volitionally unresponsive, currently alert and making requests, cooperative with medications P) monitor medications effectiveness and encourage ADLS, and nutrition
--- NOTE | 2016-03-14 17:37 | NUR ---
Buckle Assembler/Counselor: S/O: Patient slept 10+ hours last night as per staff. Unable to access S/I and H/I. Also unable to access auditory and visual hallucinations. She would not rate depression and anxiety is 4/10. A: Patient is uncooperative, flat affect, somatic, limited insight, poor judgment. P: Follow care plan coordinate out-patient providers.
--- NOTE | 2016-03-14 19:20 | NUR ---
MHA Note D- Patient did not attend any social activities and only attended ADLs with significant staff assistance. Patient declined to eat breakfast or lunch but did eat 25% of dinner in the dining room. A- Patient appeared to be responsive to staff despite not opening her eyes upon engagement. She was then physically assisted up to take medications by mouth. She would either push back, sit up, or go limp both occasions. Patient was then assisted up into a sitting position for a modified bed-bath. Around 20 minutes later staff noticed through her open door that she was laying naked and uncovered on the bed. She had taken off her clean scrubs, urinated on the bed, and then lied back down. She was resistant to staff assisting her in cleaning her up, but because she had shown an ability to ambulate independently, patient was eventually coerced to sit into a chair of her own volition. Patient was later woken up for dinner. At the time she groaned and stated "where am I?" and made a sound as if she was straining before stating that she couldn't move. Patient stated that she is stuck between dimensions. When staff reminded her about how well she did previously, patient was reluctantly cooperative with ambulating with a [id number] to the dining room. Once she had her tray she ate what she wanted, grabbed some extras from the fridge, ate them, and then returned to her room independently. She had a strong gait and appeared oriented when she returned to her room at 1700. P- Continue current treatment plan.
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
[2016-03-14] MEDS: Insulin GLARgine 100 Unit/mL Syringe SUBQ SCH (20:59)
--- NOTE | 2016-03-15 03:56 | NUR ---
Nursing Noc "I'm stuck between dimensions and I have a celestial bag.", Pt reportedly had wet her attends and was requesting us to change her in bed. Manager Business Systems was able to encourage patient to get up and change herself. Pt noted to comply without difficulty and was noted to ambulated to BR to void without difficulty. Zero weakness noted. Pt then consumed 325cc of H20 and given another of same and one of Crystal light. Bedding changed new attends given and patient returned to bed without further request. Pt presented without delusion after getting out of bed. Continuing to monitor sleep by Q15 minute safety checks, mood, behavior, emotional state and medications. CP
--- NOTE | 2016-03-15 05:38 | NUR ---
Observations 1900 to 0700 Pt was in her room when my shift stared and has remained there for the rest of the night. Pt awoke a few times in the middle of the night. Pt first appeared asleep at 20:00 and was observed every 15 minutes through the night as directed.
[2016-03-15] MEDS: predniSONE 10 mg Tablet PO SCH (07:43)
[2016-03-15] MEDS: Hydroxychloroqine 200 mg Tablet PO SCH (07:43)
[2016-03-15] MEDS: Pantoprazole 40 mg ER24 Tablet PO SCH (07:44)
[2016-03-15] MEDS: Insulin LISPRO 300 Unit/3 mL Inj SUBQ SCH ×3 (07:47→17:07)
[2016-03-15 10:20] VITALS: BP 122/87; PULSE 119; RESP 16
[2016-03-15] MEDS: diphenhydrAMINE 50 mg Capsule PO PRN (10:44)
[2016-03-15 11:58] LABS: APPEARANCE,URINE HAZY (CLEAR,HAZY); COLOR,URINE STRAW (YELLOW); OCCULT BLOOD,URINE TRACE (NEGATIVE); UROBILINOGEN,URINE NORMAL (NORMAL)
[2016-03-15] MEDS: BusPIRone 15 mg Dividose Tablet PO PRN ×2 (12:00→18:06)
--- NOTE | 2016-03-15 14:49 | NUR ---
nursing note 7am-7pm S)"can you go get my mail?" O) pt up and active around unit, ate meals and drank fluids, used phone book and made calls, c/o anxiety with PRN given, cooperative, took medications with out problems, c/o 9/10 pain in legs and head given Tylenol with little relief A) cooperative, alert, took medications P) monitor medication and encourage participation as able
--- NOTE | 2016-03-15 18:48 | NUR ---
Observations [id number] Pt was in bed when first observed. Pt appeared to be much more active and communicative today. She attended meals, eating an average of 75%. Pt made phone calls regarding her court case, did laundry, and appeared much more clear and communicative with staff then in previous days. Pt did go outside for a short period of time but did not participate in other groups. Pt spent time in the common area and watching TV. She was observed every 15 minutes of shift as directed.
[2016-03-15] MEDS: Insulin GLARgine 100 Unit/mL Syringe SUBQ SCH (20:41)
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
--- NOTE | 2016-03-16 05:16 | NUR ---
Nursing Noc Pt noted to have poor sleep this shift up and down throughout the night. Pt reporting nightmares this shift and c/o pain to knees and feet. "The pain in my feet relieves itself if I stay off of then. Pt noted to be first asleep at 0000. Continuing to monitor Q15 minute safety checks, sleep times, mood, behavior, emotional state. CP
--- NOTE | 2016-03-16 05:29 | NUR ---
Pt out on unit very little this evening. Asleep at [id number],[id number]. She awoke a few times complaining of nightmares. Music on headphones seemed helpful. Pt observed every 15 minutes as ordered.
[2016-03-16] MEDS: Pantoprazole 40 mg ER24 Tablet PO SCH (07:36)
[2016-03-16] MEDS: Insulin LISPRO 300 Unit/3 mL Inj SUBQ SCH ×3 (08:13→16:52)
[2016-03-16] MEDS: predniSONE 10 mg Tablet PO SCH (08:17)
[2016-03-16] MEDS: Hydroxychloroqine 200 mg Tablet PO SCH (08:19)
[2016-03-16 08:25] VITALS: BP 110/71; PULSE 89; RESP 16
[2016-03-16 08:45] LABS: BASOPHILS % (AUTO) 0.9 % (0-3); EOSINOPHILS % (AUTO) 0.5 % (0-5); MONOCYTES % (AUTO) 13.1 % (4-12); Mean Corpuscular Hemoglobin 26.2 pg (27.0-35.0); Mean Corpuscular Volume 81.4 fL (81-100); NEUTROPHILS % (AUTO) 50.4 % (40-74); Platelet Count 443 bil/L (150-400)
--- NOTE | 2016-03-16 12:50 | NUR ---
Nursing Dayshift: S: "They're telling me to do things and that I'm a failure." O: Patient has been up for meals and snacks with a very good appetite. Coverage of 1 unit lispro this AM and 6 units at lunch. Patient eating crackers, raisins, and drinking juice when 1130 accu-check taken which was 287. Instructed not to snack this close to meals. C/O pain at present "my feet are burning. Can't I get my nerve pain meds?" Explained she would get them at 1400 and that she is at the max dose at present. Received Tylenol 650 mg after lunch and earlier at breakfast for same complaints of foot pain at a 9/10 each time. Rates anxiety and depression "high". Denies harmful thoughts and VH. AH per above comment. A: Pressured. Brighter this AM. Med compliant. P: CPOC. Monitor mood and behavior.
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
--- NOTE | 2016-03-16 20:31 | NUR ---
Kier Drier/Counselor: S/O: Patient only slept 2+ hours last night as per staff. She denies S/I and H/I. She denies auditory and visual hallucinations. She did not rate depression and anxiety. A: Patient is cooperative, flat affect, somatic, anxious, limited insight, poor judgment. P: Follow care plan coordinate out-patient providers.
[2016-03-16] MEDS: Insulin GLARgine 100 Unit/mL Syringe SUBQ SCH (21:03)
--- NOTE | 2016-03-17 05:18 | NUR ---
Pt out on unit very little this evening. Asleep at 2145. Pt observed every 15 minutes as ordered.
--- NOTE | 2016-03-17 05:36 | NUR ---
nursing, nights, 11-7 s/o- has appeared to sleep after 2144 during q 15 minute assessments. a- no apparent distress. p- monitor behavior/emotional state, quality, times and amount of sleep, use and effect of medication. chika
[2016-03-17] MEDS: Insulin LISPRO 300 Unit/3 mL Inj SUBQ SCH ×3 (08:00→17:23)
[2016-03-17] MEDS: Pantoprazole 40 mg ER24 Tablet PO SCH (08:10)
[2016-03-17] MEDS: predniSONE 10 mg Tablet PO SCH (08:10)
[2016-03-17] MEDS: Hydroxychloroqine 200 mg Tablet PO SCH (08:12)
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
[2016-03-17 12:29] VITALS: BP 113/71; PULSE 86; RESP 16
--- NOTE | 2016-03-17 14:41 | NUR ---
Workforce Services Representative./ c.m. S./O.: pt. was in and out of her room. She was coloring with a group of peers in the Dining room. She refused to talk to MD and newswriter. A.: pt. is uncooperative, selectively mute, social with peers. P.: monitor behavior, follow care plan.
--- NOTE | 2016-03-17 14:55 | NUR ---
day shift nursing note-Psychosis/Socialization/Nutrition S/O-"I do not know what is wrong." Pt. has been mute most of the shift with a few words spoken when asked questions. She asks for her meds from signwriter but appears to have a flat affect. She responds well with her peers when doing crafts. She is cooperative and attends to ADL's. She has been out in the milieu most of the shift. A-Psychosis. P-Monitor for safety per protocol. Assess efficacy of meds to manage psychosis, lupus and diabetes. Encourage engagement in milieu.
--- NOTE | 2016-03-17 17:25 | NUR ---
Observation 0700 to 1900 Pt maintained behavioral control throughout the shift. Pt is needy, entitled, manipulative, distressed. Pt overall seemed to make fewer request and complaints than other shifts. Pt did say multiple times, "I feel funny, weird, can you have me checked out." Pt isolated in bed for much of shifts and did not attend any community activities, but did socialize in afternoon with peers for a little bit. Pt ate 100% of meals and was observed every 15 minutes as ordered.
[2016-03-17] MEDS: Insulin GLARgine 100 Unit/mL Syringe SUBQ SCH (20:48)
--- NOTE | 2016-03-17 22:30 | NUR ---
Nurses Note Evening Patient has been resistive to medications and insulin administration questioning the medication,its' purpose and then refuses it. Patient has been compliant after sustained intervention with her medications. She frequently has responded to questions with a blank stare and "I don't understand what you're saying" and walks away. Will continue q 15min. checks for safety and support. Blood sugars have been stable with low doses of Lispro insulin coverage.
--- NOTE | 2016-03-18 05:34 | NUR ---
nursing, nights, 11-7 s/o- has appeared to sleep after 2200. up briefly for a drink at 0410 and easily returned to sleep. assessed q 15 minutes. a- no complaint of nightmare, no apparent distress. p- monitor behavior/emotional state, quality, times and amount of sleep, use and effect of medication. chika
--- NOTE | 2016-03-18 06:20 | NUR ---
Pt out on unit very little this evening. Asleep at 2200. Pt observed every 15 minutes as ordered.
[2016-03-18] MEDS: Pantoprazole 40 mg ER24 Tablet PO SCH (07:45)
[2016-03-18] MEDS: Insulin LISPRO 300 Unit/3 mL Inj SUBQ SCH ×3 (08:00→17:46)
[2016-03-18] MEDS: Hydroxychloroqine 200 mg Tablet PO SCH (08:31)
[2016-03-18] MEDS: predniSONE 10 mg Tablet PO SCH (08:32)
[2016-03-18 10:15] VITALS: BP 117/75; PULSE 83; RESP 16
[2016-03-18] MEDS: hydrOXYzine Pamoate 25 mg Capsule PO PRN (10:43)
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
--- NOTE | 2016-03-18 13:26 | NUR ---
Fish Farm Laborer./ c.m. S.:"I worried about my life outside. I think somebody wants to kill me... I'm not sleeping - a lot of nightmares and hallucinations..." O.: met with pt. and MD together to assess pt.'s progress. Pt. complained about poor sleep, nightmares and hallucinations but she couldn't described them. She said that she was "hearing voices all the time" but she couldn't describe the contents of AH/VH. She denied SI/HI. She was concerned about her discharge plan and a home situation. She refused to continue the conversation after MD tried to clarify a nature of pt.'s concerns. She spent a lot of time in the Dining room together with other peers talking and coloring. A.: pt. is partially cooperative, gamy, social with peers, more active in the unit. P.: monitor behavior, monitor meds intake, follow care plan.
--- NOTE | 2016-03-18 14:10 | NUR ---
Nursing Note [id number] Behavior, Medications S/O: Pt ate 100% of breakfast & lunch. She refused Plaquenil this morning stating, "I'm not on that. I haven't been on that for years." Pt able to state what medication is & what it is used for. Her goal for today was to "stay positive." Pt stated, "I don't feel well today....Is everything ok?...What day is this?...I'm having hallucinations." Vistaril given at 1043 for anxiety r/t "hallucinations." Pt has good eye contact. Conversation tracking clear & organized with normal rate & rhythm. Full affect. A: Pt d/n appear to be responding to internal stimuli even though it is reported. P: Provide supportive environment. Monitor medications & effects.
--- NOTE | 2016-03-18 20:44 | NUR ---
OBSERVATIONS 0900 TO 2130 Pt was isolative most of the day spending much of it in bed. When pt was in common areas, pt did very little socializing with peers. Pt ate 100% of breakfast and lunch, pt sat down for dinner but after RN checked blood sugar pt refused to respond to staff questions and prompts and went to bed. Maintained Q15 safety checks as directed.
[2016-03-18] MEDS: Insulin GLARgine 100 Unit/mL Syringe SUBQ SCH (21:09)
--- NOTE | 2016-03-18 23:46 | NUR ---
Nurses Note Evening Patient has been fairly social with periods of resistive behaviors that required persistence,redirection and humor. VG=680 at dinner,MS=298. Will maintain q 15min. checks for safety,support,encourage diabetic diet compliance.
--- NOTE | 2016-03-19 05:13 | NUR ---
Nurses Note Night Patient appeared to sleep well without signs of distress when checked q 15min. checks for safety.
--- NOTE | 2016-03-19 05:16 | NUR ---
Nursing Note NOC Patient slept for 6.75 hours with no prns this shift. Last prn was a 25 mg Vistaril at 1041. 15 minute checks completed. Out in milieu rosemary shift. Seeking snacks with staff. In room all of NOC shift.
--- NOTE | 2016-03-19 06:13 | NUR ---
Pt out on unit very little this evening. Asleep at 2215. Pt observed every 15 minutes as ordered.
[2016-03-19] MEDS: Pantoprazole 40 mg ER24 Tablet PO SCH (07:52)
[2016-03-19] MEDS: predniSONE 10 mg Tablet PO SCH (08:00)
[2016-03-19] MEDS: Insulin LISPRO 300 Unit/3 mL Inj SUBQ SCH ×3 (08:00→16:59)
[2016-03-19] MEDS: Hydroxychloroqine 200 mg Tablet PO SCH (08:30)
--- NOTE | 2016-03-19 10:17 | NUR ---
S: I want my laundry done. NOW. O: Tabitha is out on the unit. She is wearing her own clothes. Responsive verbally when approached. Took some of morning meds. but refused most of them due to "my stomach hurts." Sad facial expression. Does not interact or do activities with peers but sits at a table beside the group. At 1040, she suddenly shouted 'Stop!". When questioned, she states she feels suicidal, depressed, and hears too many sounds. A: Voices distress: 'sounds', depression, suicidality, anxiety. P: Offer a.m. meds that she refused. Addendum: 03/19/16 at 1046 by JORGE SMITH RN Amended: Links added. Addendum: 03/19/16 at 1935 by JORGE SMITH RN Update: Tabitha had several complaints as the day progressed. She stated that her room smelled. Wanted a shower and new scrubs. Put on the emergency call light in her room to ask for water. Did not ever take a shower. Acts needy. P: Shower tomorrow.
[2016-03-19 10:45] VITALS: BP 109/74; PULSE 102; RESP 15
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
[2016-03-19] MEDS: hydrOXYzine Pamoate 25 mg Capsule PO PRN (15:59)
--- NOTE | 2016-03-19 18:37 | NUR ---
Observations 0900 to 0 Pt affect and mood was same as previous shifts. Pt appears to be flat, isolative, manipulative, guarded and confused at times. When patient doesn't get what she wants when she wants it she will do some staff splitting to try and get her wants and needs met. Pt speech and eye contact was ok. Pt refused to attend group and unit activities. Pt attended community meeting but refused to set a daily goal. Pt was minimally social with staff and peers when approached. Pt attended meals in D.R. and ate 100% of all meals. Pt ate snacks. Pt maintained behavior throughout the shift. Pt was polite, pleasant and cooperative. Pt spent most of the shift in her room and in bed. Pt declined going out on patio to get some fresh air. Pt was observed every 15 minutes throughout the shift as ordered. Pt is currently in her room resting.
[2016-03-19] MEDS: Insulin GLARgine 100 Unit/mL Syringe SUBQ SCH (20:06)
[2016-03-20] MEDS: hydrOXYzine Pamoate 25 mg Capsule PO PRN ×2 (03:38→14:27)
--- NOTE | 2016-03-20 03:45 | NUR ---
Observations 1900 to 0700 Pt was in her room when my shift stared and has remained there for the rest of the night. Pt awoke a few times in the middle of the night. Pt first appeared asleep at 20:15 and was observed every 15 minutes through the night as directed.
--- NOTE | 2016-03-20 06:32 | NUR ---
Nursing [id number] Pt appeared to sleep at 2014, awoke at 0045 briefly and [id number]. Vistaril 25mg PRN given at 0340.
[2016-03-20] MEDS: Pantoprazole 40 mg ER24 Tablet PO SCH ×2 (07:44→08:17)
[2016-03-20] MEDS: Insulin LISPRO 300 Unit/3 mL Inj SUBQ SCH ×3 (08:00→17:38)
--- NOTE | 2016-03-20 08:07 | NUR ---
Floral Decorator./ c.m. S.:"I'm not so good, not at all..." O.: met with pt. in the Dining room. She was sitting alone near TV. She denied SI/HI. She complained about feeling "not good" and pain but she didn't give specific descriptions. She said that she had nightmares last night but than she started talking about a migraine. She complained about poor appetite but she said that she was "eating anyway". She became more intense when she brought up an issue of "voices". She said that "they" were very bad. She started squeezing her eyes and twisting her facial muscles. Suddenly she said "I think there is breakfast coming" and her face became relaxed. She doesn't initiate conversations but she is readily responding on peers invitations to talk. A.: pt. is cooperative, quiet, social with peers. She has very dramatic and incongruent presentation and looks unkempt. P.: monitor behavior, monitor meds intake; follow care plan.
[2016-03-20] MEDS: Hydroxychloroqine 200 mg Tablet PO SCH (08:16)
[2016-03-20] MEDS: predniSONE 10 mg Tablet PO SCH (08:16)
[2016-03-20 10:51] VITALS: BP 117/75; PULSE 102; RESP 16
--- NOTE | 2016-03-20 12:43 | NUR ---
Nursing Note [id number] Behavior, Medications S/O: Pt has good appetite. Pt refused am medications (peer encouraged her not to take medications), then decided to take all am medications except for magnesium oxide & vitamin D3. She again started to refuse 1130 medications, but changed her mind. AM blood sugar was 126 with no insulin coverage needed. 1130 blood sugar was 217 with 3 units of sliding scale coverage. Pt has been coloring with peers this morning. She becomes agitated when staff working with peers when she wanted something. Pt wants staff to help her with paying rent on her housing that she d/n want to return to. A: Pt is very dependent on staff meeting her needs. P: Provide structured environment. Monitor medications & effects.
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
--- NOTE | 2016-03-20 18:26 | NUR ---
Observations [id number] Pt was asleep upon start of shift. Today she continued to make many requests, such as doing laundry multiple times throughout the day and asking to be moved rooms. Mood appears distraught and attention seeking. Pt stated that "my room is making me sick." Pt appeared to be not feeling well throughout the day. She spent time in room and in dining area but did not socialize much with peers. Pt also hit her call button a few times to state that she is not feeling well. Pt ate 75% of meals, and was observed every 15 minutes of shift as directed.
--- NOTE | 2016-03-20 18:40 | NUR ---
Nurses Note Evening Medication Patient crying while waking the hallway "make them stop,the voices make them stop." Patient received scheduled Seroquel 200mg HS at this time with Benadryl 25mg, will assess response.
[2016-03-20] MEDS: Insulin GLARgine 100 Unit/mL Syringe SUBQ SCH (21:00)
--- NOTE | 2016-03-21 04:06 | NUR ---
NIGHT NURSING NOTE Patient has stayed in bed all night, refusing to take her night meds or have her BG checked. States, " my medications make me sick when I take them and sick when I don't." Patient prompted several times to take meds but she refused, staying in bed. Will continue to monitor.
[2016-03-21] MEDS: Pantoprazole 40 mg ER24 Tablet PO SCH ×2 (07:30→08:41)
[2016-03-21] MEDS: Insulin LISPRO 300 Unit/3 mL Inj SUBQ SCH ×3 (08:00→17:30)
[2016-03-21] MEDS: predniSONE 10 mg Tablet PO SCH ×2 (08:00→08:41)
[2016-03-21] MEDS: Hydroxychloroqine 200 mg Tablet PO SCH ×2 (08:30→08:41)
[2016-03-21 09:21] VITALS: BP 127/77; PULSE 88; RESP 16
--- NOTE | 2016-03-21 13:01 | PCM.PNPSY ---
Subjective Date of Service Mar 21, 2016 Subjective I spent 10 minutes both reviewing treatment plan and providing supportive/ educational psychotherapy. Tabitha was mute and non-communicative today. She reports to staff that she refused all medications yesterday despite complaining of having terrible neurological pain. She continues to be active on the unit seeking out food and comfort but is not participating well in one-to -one or unit activities. She slept 10 hours . She denies medication side effects. Mental Status Exam Vital Signs Vital Signs Date Time Temp Pulse Resp B/P Pulse Ox O2 Delivery O2 Flow Rate FiO2 03/21/16 09:21 37.0 88 16 127/77 Appearance: Neat/well groomed Attitude: Pleasant, Guarded Behavior: No unusual behavior Affect: Well Modulated/Appropriate Mood: Euthymic, Anxious Thought Process/Associations: Logical/Sequential, Goal Directed Speech Production: Normal Speech Rate: Normal Speech Articulation: Normal Thought Content: Appropriate Danger to Self/Suicidal Ideati: None Danger to Others: None Delusions: Somatic (Endorses) Hallucinations: Auditory (Endorses) Consciousness: Somnolent Orientation: Unable to assess Memory: Grossly Intact Estimate Intellectual Function: Average Attention/Concentration & Cogn: Grossly Intact Insight: Limited Judgement: Poor Result Diagram: 03/16/16 0755 03/16/16 0755 Mental Health Plan Tabitha is a 55-year-old white female, admitted under revocation of her 90 day least restrictive alternative for altered mental status. A medical workup has been essentially negative. She tends to report amnesia or simply stares blankly ahead and refuses to answer questions. The patient struggles with chronic illness of diabetes and lupus but it does not appear that these issues are contributing to her current behavior. The patient's main issue from my evaluation is PTSD, and borderline personality traits. She presented for hospitalization with no clear precipitating event. Medically she is stable. Her symptoms appear to significantly vary depending on the individual with whom she is interacting. Given her recent good response to low-dose Seroquel and prazosin and to treat her symptoms her presentation is most consistent for PTSD and factitious disorder and not a major psychiatric illness. The patient has often refused medications resulting in both actual mental illness and factitious disorder/malingering. Tabitha was again a poor historian today and it was difficult to find out what is truly going on in her symptoms and her outpatient life. [place] AXIS I: 1. Posttraumatic stress disorder chronic. 2. Factitious disorder 3. Psychotic disorder unspecified AXIS II: 1. Borderline personality disorder, by history. 2. Dependent personality disorder, by history. AXIS V: Please see past medical history. AXIS IV: Psychosocial stressors are moderate with chronic mental health issues, treatment noncompliance, poor coping skills and limited social supports. AXIS V: Global Assessment of Functioning 35. Medications Medications to address General Physical Health CellCept 1000 mg twice a day Insulin glargine 18 units subcutaneous at bedtime with insulin sliding scale as directed Bethanechol 20 mg 3 times a day Gabapentin 900 mg 4 times a day Hydroxychloroquine 400 mg daily Levothyroxine 200 g daily Magnesium oxide 400 mg twice a day Metformin 1000 mg twice a day Methocarbamol 750 mg 3 times a day Pantoprazole 40 mg daily Prednisone 10 mg daily Ropinirole 0.5 mg at bedtime Cephalexin 250 mg 3 times a day for 3 days to target urinary tract infection Psychiatric medications: Prazosin 1 mg daily and 2 mg nightly Quetiapine 200 mg at bedtime Trazodone 200 mg at bedtime Vitamin D3 3000 units daily Treatments 1. The patient is encouraged to participate with group and milieu therapy. 2. The patient is encouraged to continue medications as prescribed. 3. The patient will meet with the treatment team on a daily basis to assess symptoms, side effects, and response to treatment. 4. Will continue current medications trazodone Seroquel prazosin 7. Benzodiazepines will be avoided given her history of substance use and apparent precipitant for current admission. She also does not appear to have actual catatonia. 8. Although the patient has expressed a desire for residential placement, the structured environment and requirements there will likely be difficult for the patient. PACT or similar involvement may be beneficial. 9. Anticipated length of stay 7 days. 10. A community stakeholder meeting regarding management of this complicated patient is warranted. 11. gabapentin to 900 mg 4 times a day. Wale Stinson MD Mar 21, 2016 13:01
--- NOTE | 2016-03-21 16:05 | NUR ---
Pt spent most of day in bed and did not get up for breakfast or lunch. Pt refused all meds. Pt generally unresponsive. Pt appeared despondent and in pain much of day. In AM, Pt stated, "I can't move my legs." Pt could move toes, repositioned self in bed, and out of bed in afternoon. Two nurses attempted to assist pt sitting up, pt resisted assistance. VS stable. Blood glucose: breakfast, 152; lunch 112. No insulin given.
--- NOTE | 2016-03-21 16:36 | NUR ---
Environmental Associate/Counselor: S/O: Patient slept 10+ hours last night as per staff. She would not communicate with staff today. Non-communicative and mute. A: Patient is uncooperative, no insight, no judgment. P: Follow care plan coordinate out-patient providers.
[2016-03-21 18:03] VITALS: BP 127/77; PULSE 88; RESP 16
--- NOTE | 2016-03-21 19:32 | NUR ---
Obs Dayshift Pt remained in bed all shift, got up only for dinner. Pt is not responding to staff questions, not talking. Not participating in treatment. Poor ADL's, Poor meals
[2016-03-21] MEDS: Insulin GLARgine 100 Unit/mL Syringe SUBQ SCH (21:00)
--- NOTE | 2016-03-21 21:52 | NUR ---
Nurses Note Evening Patient was out of bed for a shower and changed her scrubs. She ate poorly at dinner and retired to bed. Patient has been generally non-verbal and refused all her medications and insulin. Her [id number] at 2130. Will maintain q 15min. checks for safety and support.
--- NOTE | 2016-03-22 05:25 | NUR ---
Pt isolated to room all evening. Staff awoke her after she was heard calling for help from a nightmare. Was awake for a short time to redirect then fell back to sleep. Asleep at 2030-400, 445. Pt observed every 15 minutes as ordered.
--- NOTE | 2016-03-22 05:33 | NUR ---
nursing, nights, 11-7 s- help. help. i'm a girl. no i can't sit up. no i don't belong here. thank you. o- has appeared to sleep after 2029 to 349 when staff heard her call out. appeared to be having a nightmare. expressed surprise as staff attempted to awake. appeared relieved and returned to sleep after 444. assessed q 15 minutes. a- interrupted sleep, responded well to staff support and reassurance, no apparent physical distress. p- monitor behavior/emotional state, quality, times and amount of sleep, use and effect of medication. chika
[2016-03-22] MEDS: Pantoprazole 40 mg ER24 Tablet PO SCH (07:30)
[2016-03-22] MEDS: Insulin LISPRO 300 Unit/3 mL Inj SUBQ SCH ×3 (08:00→17:30)
[2016-03-22] MEDS: predniSONE 10 mg Tablet PO SCH (08:00)
[2016-03-22] MEDS: Hydroxychloroqine 200 mg Tablet PO SCH (08:30)
--- NOTE | 2016-03-22 10:52 | NUR ---
AM Meds: Patient laying in bed non verbal when addressed. BS 152 this AM. Occasional moaning and heavy breathing when staff notably in the vicinity. Quiet normal breathing otherwise. Does not acknowledge this staff when approached with medications. Insulin Lispro 1 unit held due to no PO intake this AM. Will continue to monitor and approach patient for med administration.
--- NOTE | 2016-03-22 11:46 | PCM.PNPSY ---
Subjective Date of Service Mar 22, 2016 Subjective I spent 10 minutes both reviewing treatment plan and providing supportive/ educational psychotherapy. Tabitha was mute and non-communicative again today. She reports to staff that she refused all medications for the past 48 hours. She has been isolating in her room and only coming out on the unit seeking out food . She is not participating well in one-to-one or unit activities. She slept 9.25 hours . She would not respond to my questions about potential medication side effects. Mental Status Exam Appearance: Neat/well groomed Attitude: Pleasant, Guarded Behavior: No unusual behavior Affect: Well Modulated/Appropriate Mood: Euthymic, Anxious Thought Process/Associations: Logical/Sequential, Goal Directed Speech Production: Muter Speech Rate: Lags/Latency Speech Articulation: Slurred Thought Content: Appropriate Danger to Self/Suicidal Ideati: None Danger to Others: None Delusions: Somatic (Endorses) Consciousness: Somnolent Orientation: Unable to assess Memory: Grossly Intact, Untestable Estimate Intellectual Function: Average Attention/Concentration & Cogn: Grossly Intact Insight: Unable to assess Judgement: Unable to assess Result Diagram: 03/16/16 0755 03/16/16 0755 Mental Health Plan Tabitha is a 55-year-old white female, admitted under revocation of her 90 day least restrictive alternative for altered mental status. A medical workup has been essentially negative. She tends to report amnesia or simply stares blankly ahead and refuses to answer questions. The patient struggles with chronic illness of diabetes and lupus but it does not appear that these issues are contributing to her current behavior. The patient's main issue from my evaluation is PTSD, and borderline personality traits. She presented for hospitalization with no clear precipitating event. Medically she is stable. Her symptoms appear to significantly vary depending on the individual with whom she is interacting. Given her recent good response to low-dose Seroquel and prazosin and to treat her symptoms her presentation is most consistent for PTSD and factitious disorder and not a major psychiatric illness. She is again refusing to take her medications. I will reduce Abilify Seroquel and trazodone as it seems she is passively complaining of symptoms by doing a medication refusal. Tabitha was again a poor historian today and it remains difficult to find out what is truly going on in her symptoms and her outpatient life. [place] AXIS I: 1. Posttraumatic stress disorder chronic. 2. Factitious disorder 3. Psychotic disorder unspecified AXIS II: 1. Borderline personality disorder, by history. 2. Dependent personality disorder, by history. AXIS V: Please see past medical history. AXIS IV: Psychosocial stressors are moderate with chronic mental health issues, treatment noncompliance, poor coping skills and limited social supports. AXIS V: Global Assessment of Functioning 35. Medications Medications to address General Physical Health CellCept 1000 mg twice a day Insulin glargine 18 units subcutaneous at bedtime with insulin sliding scale as directed Bethanechol 20 mg 3 times a day Gabapentin 900 mg 4 times a day Hydroxychloroquine 400 mg daily Levothyroxine 200 g daily Magnesium oxide 400 mg twice a day Metformin 1000 mg twice a day Methocarbamol 750 mg 3 times a day Pantoprazole 40 mg daily Prednisone 10 mg daily Ropinirole 0.5 mg at bedtime Cephalexin 250 mg 3 times a day for 3 days to target urinary tract infection Psychiatric medications: Prazosin 1 mg daily and 2 mg nightly Quetiapine 200 mg at bedtime Trazodone 200 mg at bedtime Vitamin D3 3000 units daily Abilify 5 mg daily Treatments 1. The patient is encouraged to participate with group and milieu therapy. 2. The patient is encouraged to continue medications as prescribed. 3. The patient will meet with the treatment team on a daily basis to assess symptoms, side effects, and response to treatment. 4. Will decrease trazodone to 100 mg at bedtime, Seroquel to 100 mg at bedtime , discontinue Abilify and continue prazosin twice a day 7. Benzodiazepines will be avoided given her history of substance use and apparent precipitant for current admission. She also does not appear to have actual catatonia. 8. Although the patient has expressed a desire for alf placement, the structured environment and requirements there will likely be difficult for the patient. PACT or similar involvement may be beneficial. 9. A community stakeholder meeting regarding management of this complicated patient is warranted. Wale Stinson MD Mar 22, 2016 11:46
[2016-03-22 11:50] VITALS: BP 132/68; PULSE 62; RESP 20
[2016-03-22 12:12] LABS: BASOPHILS % (AUTO) 0.4 % (0-3); EOSINOPHILS % (AUTO) 0 % (0-5); MONOCYTES % (AUTO) 9.2 % (4-12); Mean Corpuscular Hemoglobin 26.1 pg (27.0-35.0); Mean Corpuscular Volume 80.3 fL (81-100); NEUTROPHILS % (AUTO) 74.6 % (40-74); Platelet Count 566 bil/L (150-400)
[2016-03-22 13:58] LABS: APPEARANCE,URINE HAZY (CLEAR,HAZY); COLOR,URINE YELLOW (YELLOW); OCCULT BLOOD,URINE NEGATIVE (NEGATIVE); UROBILINOGEN,URINE NORMAL (NORMAL)
--- NOTE | 2016-03-22 14:17 | NUR ---
Nursing Note [id number] Behavior, Medications S/O: Pt has refused/been unable to get up today. She hasn't eaten yet today. Blood sugar at 0730 was 152. Insulin held d/t pt didn't eat breakfast. 1130 blood sugar was 145. Pt has been incontinent of urine. Bed bath given, depends placed on pt & sheets changed on bed. Pt has a tear to the left side of her coccyx. Wound consult obtained. Pt had CBC, CMP, & UA. UA obtained by straight cath as pt wasn't able/willing to get up. Pt refusing to talk except to object to something being said or to inform [facility] that shirt was too small. A: Pt unable to care for self. P: Provide supportive environment. Monitor medications & effects.
--- NOTE | 2016-03-22 16:56 | NUR ---
Observations 0700 to 1900 Pt affect and mood was isolative, mute, unmotivated and hopeless. Pt speech and eye contact was poor. Pt refused to attend group and unit activities. Pt refuses to attend community meeting and refused to set a daily goal. Pt refused to attend all meals. Pt declined snacks. Pt maintained behavior throughout the shift. Pt was polite, pleasant and cooperative. Pt the shift in her room and in bed. Pt declined going out on patio to get some fresh air. Pt was observed every 15 minutes throughout the shift as ordered. Pt is currently in her room resting.
--- NOTE | 2016-03-22 17:57 | NUR ---
Wound Care Orders received to assess right low back wound. Pt examined at bedside with nursing present. Unable to elicit any kind of history from this quiet female sidelying in bed. Present with a right flank abrasion ( 2 cm x 1.5 cm x 0.1 cm) that is inflamed but certainly not infected in any way. No debridement necessary, recommend Mepilex 4x4 adhesive foam changed by nursing PRN.
--- NOTE | 2016-03-22 18:48 | NUR ---
Business Sales Consultant/Counselor: S/O: Patient slept 9.25 hours last night as per staff. She would not communicate with staff today. Non-communicative and mute. A: Patient is uncooperative, irritable, no insight, no judgment. P: Follow care plan coordinate out-patient providers.
[2016-03-22] MEDS: Insulin GLARgine 100 Unit/mL Syringe SUBQ SCH (21:00)
--- NOTE | 2016-03-23 04:41 | NUR ---
Pt isolated to room most of shift. She did get up and come out walking in morales during the night. Refused to verbally respond to staff even after pushing call tao. Asleep at 2200-245. Pt observed every 15 minutes as ordered.
--- NOTE | 2016-03-23 05:26 | NUR ---
nursing, nights, 11-7 s- initially mute to staff. later became more responsive and effectively expressing needs. o- refused to get out of or sit up in bed. declined medication, food, fluids. appeared to sleep 2200 to 0245. up walking the morales then returned to bed. slept from 0415 to 0445. up and asked for a snack consuming a pudding and ensure. has returned to bed and is resting quietly. assessed q 15 minutes. a- interrupted/inadequate sleep, no complaint of nightmare, no apparent internal stimuli, non responsiveness appears to be volitional, no apparent physical distress. s- encourage activity, adl's, medications, monitor intake and out put, support and assist as required. chika
[2016-03-23] MEDS: Pantoprazole 40 mg ER24 Tablet PO SCH (07:30)
[2016-03-23] MEDS: predniSONE 10 mg Tablet PO SCH (08:00)
[2016-03-23] MEDS: Hydroxychloroqine 200 mg Tablet PO SCH (08:30)
[2016-03-23] MEDS: Insulin LISPRO 300 Unit/3 mL Inj SUBQ SCH ×3 (08:30→16:50)
[2016-03-23 09:15] VITALS: BP 121/94; PULSE 132; RESP 16
--- NOTE | 2016-03-23 11:23 | PCM.PNPSY ---
Subjective Date of Service Mar 23, 2016 Subjective I spent 10 minutes both reviewing treatment plan and providing supportive/ educational psychotherapy. Tabitha was mute and non-communicative again today. She reports to staff that she is now starting to take her medications again. She has been isolating in her room and only coming out on the unit seeking out food . She is not participating well in one-to-one or unit activities. She slept 6 hours . She would not respond to my questions about potential medication side effects. (I observed the patient in the dining morales prior to meeting with her. She was bright and alert. She had a normal gait. She was seeking out different types of of food and drinks. She was interacting appropriately with other patients. When she saw this physician and the case coordinator she shuffled out of the kitchen went down to her bedroom and laid on her bed refusing to speak. I believe she is trying to show me that she is in a regressed state or a "alter". I do believe she becomes dissociative secondary to past trauma, but this type of behavior and the symptoms seem to be feigned.) Mental Status Exam Appearance: Neat/well groomed Attitude: Pleasant, Guarded Behavior: No unusual behavior Affect: Well Modulated/Appropriate Mood: Euthymic, Anxious Thought Process/Associations: Logical/Sequential, Goal Directed Speech Production: Muter Speech Rate: Lags/Latency Speech Articulation: Slurred Thought Content: Appropriate Danger to Self/Suicidal Ideati: None Danger to Others: None Delusions: Somatic (Endorses) Consciousness: Somnolent Orientation: Unable to assess Memory: Grossly Intact, Untestable Estimate Intellectual Function: Average Attention/Concentration & Cogn: Grossly Intact Insight: Unable to assess Judgement: Unable to assess Result Diagram: 03/22/16 1155 03/22/16 1155 Mental Health Plan Tabitha is a 55-year-old white female, admitted under revocation of her 90 day least restrictive alternative for altered mental status. A medical workup has been essentially negative. She tends to report amnesia or simply stares blankly ahead and refuses to answer questions. The patient struggles with chronic illness of diabetes and lupus but it does not appear that these issues are contributing to her current behavior. The patient's main issue from my evaluation is PTSD, and borderline personality traits. She presented for hospitalization with no clear precipitating event. Medically she is stable. Her symptoms appear to significantly vary depending on the individual with whom she is interacting. Given her recent good response to low-dose Seroquel and prazosin and to treat her symptoms her presentation is most consistent for PTSD and factitious disorder and not a major psychiatric illness. She is again refusing to take her medications. I will reduce Abilify Seroquel and trazodone as it seems she is passively complaining of symptoms by doing a medication refusal. Tabitha was again a poor historian today and it remains difficult to find out what is truly going on in her symptoms and her outpatient life. (I observed the patient in the dining morales prior to meeting with her. She was bright and alert. She had a normal gait. She was seeking out different types of of food and drinks. She was interacting appropriately with other patients. When she saw this physician and the case coordinator she shuffled out of the kitchen went down to her bedroom and laid on her bed refusing to speak. I believe she is trying to show me that she is in a regressed state or a "alter". I do believe she becomes dissociative secondary to past trauma, but this type of behavior and the symptoms seem to be feigned.) [place] AXIS I: 1. Posttraumatic stress disorder chronic. 2. Factitious disorder 3. Psychotic disorder unspecified AXIS II: 1. Borderline personality disorder, by history. 2. Dependent personality disorder, by history. AXIS V: Please see past medical history. AXIS IV: Psychosocial stressors are moderate with chronic mental health issues, treatment noncompliance, poor coping skills and limited social supports. AXIS V: Global Assessment of Functioning 35. Medications Medications to address General Physical Health CellCept 1000 mg twice a day Insulin glargine 18 units subcutaneous at bedtime with insulin sliding scale as directed Bethanechol 20 mg 3 times a day Gabapentin 900 mg 4 times a day Hydroxychloroquine 400 mg daily Levothyroxine 200 g daily Magnesium oxide 400 mg twice a day Metformin 1000 mg twice a day Methocarbamol 750 mg 3 times a day Pantoprazole 40 mg daily Prednisone 10 mg daily Ropinirole 0.5 mg at bedtime Cephalexin 250 mg 3 times a day for 3 days to target urinary tract infection Psychiatric medications: Prazosin 1 mg daily and 2 mg nightly Quetiapine 200 mg at bedtime Trazodone 200 mg at bedtime Vitamin D3 3000 units daily Abilify 5 mg daily Treatments 1. The patient is encouraged to participate with group and milieu therapy. 2. The patient is encouraged to continue medications as prescribed. 3. The patient will meet with the treatment team on a daily basis to assess symptoms, side effects, and response to treatment. 4. Will decrease trazodone to 100 mg at bedtime, Seroquel to 100 mg at bedtime , discontinue Abilify and continue prazosin twice a day 7. Benzodiazepines will be avoided given her history of substance use and apparent precipitant for current admission. She also does not appear to have actual catatonia. 8. Although the patient has expressed a desire for long term placement, the structured environment and requirements there will likely be difficult for the patient. PACT or similar involvement may be beneficial. 9. A community stakeholder meeting regarding management of this complicated patient is warranted. Wale Stinson MD Mar 23, 2016 11:23
--- NOTE | 2016-03-23 11:32 | NUR ---
Nursing Day Shift- S- "Can I get more blankets? It's cold in here." O- Pt. was awake for breakfast. She ambulated independently with a slow but steady gait to the DR. Pt. was clear and appropriate in her requests from staff, but mute when asked questions. She eat 30% breakfast and has been observed drinking 3-4 large cups of fluid. Pt. declined her AM medications, but then asked for and took Neurontin and Robaxin at 1111. She was informed that a 2nd opinion was signed for forced meds should she refuse her HS Seroquel. Pt. did not comment or respond to staff. Pt. delivered dirty linens to staff, and was assisted in changing her bed. A- Able to ambulate with a steady gait and verbalize clearly when seeking out requests from staff. Selective with medications. Drinking adequate fluids and eating thus far today. P- Cont. BHTP. IM Zyprexa at HS if Pt. refuses PO Seroquel.
--- NOTE | 2016-03-23 16:51 | NUR ---
PT REFUSING FSBS AND 16:30 MEDICATIONS Pt. refused her FSBS stating: "No thanks, I already know what it is" *smiles*. Pt. shrugged and walked away when this assembly instructions writer reminded her she was high earlier today and asked how she could tell what her BG level was. Also refused to take her scheduled Cellcept, Metformin, and Gabapentin, repeating: "No thanks. No thanks." Education provided.
--- NOTE | 2016-03-23 18:02 | NUR ---
Client Server Programmer/Counselor: S/O: Patient slept 6 hours last night as per staff. She would not communicate with psychiatrist and this ghost writer today. Non-communicative and mute. A: Patient is uncooperative, irritable, no insight, no judgment. P: Follow care plan coordinate out-patient providers.
--- NOTE | 2016-03-23 18:07 | NUR ---
[facility] Day Shift Pt maintained behavioral control throughout the shift. Pt affect appears mostly flat, brighter in the evening. Pt spends most of the shift resting in her room, pacing aimlessly on the unit, or interacting with peers (in the evening). Pt is appropriate with staff and peers when active on the unit. Pt continues to engage staff frequently with multiple requests for unit amenities and assistance. Pt attended community meeting and attempted to participate in group activities. Pt attended all meals and ate approx 20-30% of breakfast and lunch, and approx 75% of dinner.
[2016-03-23] MEDS: Insulin GLARgine 100 Unit/mL Syringe SUBQ SCH (20:40)
--- NOTE | 2016-03-23 21:54 | NUR ---
NURSING NOTE [id number] Mood= "okay" Affect= brighter, smiling at times especially in the milieu w/her peers Behavior= pt. resting in bed at initial start of shift but has been out of her room frequently to pace the halls, watch TV, eat snacks and meals in the DR. Thought processes= pt. presented as confused w/this literary writer at start of shift, asking in a soft voice: "is today Saturday the ?" and then insisted it was this date after being told it wasn't. She asked this literary writer; "am I in [place]?" again w/a soft voice. She would not answer this literary writer when asked about SI/HI/AH/VH except to repeat "I'm fine" over and over. Pt. was not observed to have this same presentation w/her peers this evening as she chatted and laughed w/them while watching a comedy film. She refused her scheduled afternoon medications and FSBS and then refused her HS medications as well. This literary writer counseled her that if she did not take her PO Seroquel she would be given a Zyprexa injection. Pt. said "No. You can't do that to me and I'm not gonna take that". Again explained to the pt. the doctor's orders but she refused and walked off. Show of support was called, and when the pt. saw the security staff arrive on unit she came to this literary writer and said "you didn't have to call security on me, I'll take the pill but you didn't have to call them on me..." Pt. did take her HS Seroquel in PO form but refused all other meds and her FSBS.
--- NOTE | 2016-03-24 05:57 | NUR ---
Nursing note: shift superintendent Patient observed to be sleeping on safety checks during the night. Patient observed to get up briefly twice to get a drink of water, but promptly returned to bed
--- NOTE | 2016-03-24 06:02 | NUR ---
Pt isolated to room most of shift. She did get up and come out walking in morales during the evening and night. Asleep at 2145. Pt observed every 15 minutes as ordered.
[2016-03-24] MEDS: Pantoprazole 40 mg ER24 Tablet PO SCH (07:30)
[2016-03-24] MEDS: predniSONE 10 mg Tablet PO SCH (08:00)
[2016-03-24] MEDS: Insulin LISPRO 300 Unit/3 mL Inj SUBQ SCH ×3 (08:11→17:06)
[2016-03-24] MEDS: Hydroxychloroqine 200 mg Tablet PO SCH (08:30)
--- NOTE | 2016-03-24 11:53 | NUR ---
Nursing 7a-7p S/O: "I can't take my meds. They make me sick, even the insulin. I have tried taking them with food and it doesn't work. I have lost 40-50 pounds in the last 6 months. I talked to the doctor about going to assisted living. I need a computer to look for a place. I need the case resource manager to help me. I keep being admitted and discharged and I can't do this anymore and I can't live alone." "I'm so tired because of the loud humming in my room. I can't sleep and if I can't sleep, I can't get better." Patient up to dining room for frequent snacks and meals. Patient conversing appropriately and requesting to change rooms. Patient refused all a.m. medications with the exception of her insulin injection. A: Cooperative, pleasant, med non-compliant P: Continue to monitor mood and behavior, continue behavioral health plan of care Addendum: 03/24/16 at 1857 by PHOEBE ACOSTA RN Wound Two small open areas surrounded by redness on R lower back noted, no drainage. Patient unaware of how it occurred.
[2016-03-24 12:23] VITALS: BP 120/79; PULSE 106; RESP 15
--- NOTE | 2016-03-24 15:45 | PCM.PNPSY ---
Subjective Date of Service Mar 24, 2016 Subjective I spent 20 minutes both reviewing treatment plan and providing supportive/ educational psychotherapy. Tabitha was pleasant and appropriately verbal today. She is tending to alternate every other day between" playing possum" and advocating for her self-care. She is no longer isolating in her room and is asking staff for help in arranging outpatient treatment and retirement. She is not participating well in one-to-one or unit activities. She slept 7 hours . She responded easily to all my questions today and consistently denied medication side effects. In the dining morales prior to meeting with her She was bright and alert. She had a normal gait. She was seeking out different types of of food and drinks. She was interacting appropriately with other patients. She was appropriate with me again during our one-to-one. Current Medications Current Medications Quetiapine Fumarate 100 mg HS PO Last administered on 03/23/16t 20:41; Admin Dose 100 MG; Start 03/22/16 at 21:00 Mental Status Exam Vital Signs Vital Signs Date Time Temp Pulse Resp B/P Pulse Ox O2 Delivery O2 Flow Rate FiO2 03/24/16 12:23 36.1 106 15 120/79 Appearance: Neat/well groomed Attitude: Pleasant, Cooperative Behavior: No unusual behavior Affect: Well Modulated/Appropriate Mood: Anxious Thought Process/Associations: Logical/Sequential, Goal Directed Speech Production: Normal Speech Rate: Normal Speech Articulation: Normal Thought Content: Appropriate Danger to Self/Suicidal Ideati: None Danger to Others: None Delusions: Somatic (Endorses) Consciousness: Alert Orientation: Person, Place, Date, Situation Memory: Grossly Intact Estimate Intellectual Function: Average Basis for IQ estimate: Awareness current events Attention/Concentration & Cogn: Grossly Intact Insight: Limited Judgement: Limited Result Diagram: 03/22/16 1155 03/22/16 1155 Mental Health Plan Tabitha is a 55-year-old white female, admitted under revocation of her 90 day least restrictive alternative for altered mental status. A medical workup has been essentially negative. She tends to report amnesia or simply stares blankly ahead and refuses to answer questions. The patient struggles with chronic illness of diabetes and lupus but it does not appear that these issues are contributing to her current behavior. The patient's main issue from my evaluation is PTSD, and borderline personality traits. She presented for hospitalization with no clear precipitating event. Medically she is stable. Her symptoms appear to significantly vary depending on the individual with whom she is interacting. Given her recent good response to low-dose Seroquel and prazosin and to treat her symptoms her presentation is most consistent for PTSD and factitious disorder and not a major psychiatric illness. Tabitha easily engaged and alert today. She had no trouble reviewing her treatment plan and coming up with steps for support after discharge. [place] AXIS I: 1. Posttraumatic stress disorder chronic. 2. Factitious disorder 3. Psychotic disorder unspecified AXIS II: 1. Borderline personality disorder, by history. 2. Dependent personality disorder, by history. AXIS V: Please see past medical history. AXIS IV: Psychosocial stressors are moderate with chronic mental health issues, treatment noncompliance, poor coping skills and limited social supports. AXIS V: Global Assessment of Functioning 45. Medications Medications to address General Physical Health CellCept 1000 mg twice a day Insulin glargine 18 units subcutaneous at bedtime with insulin sliding scale as directed Bethanechol 20 mg 3 times a day Gabapentin 900 mg 4 times a day Hydroxychloroquine 400 mg daily Levothyroxine 200 g daily Magnesium oxide 400 mg twice a day Metformin 1000 mg twice a day Methocarbamol 750 mg 3 times a day Pantoprazole 40 mg daily Prednisone 10 mg daily Ropinirole 0.5 mg at bedtime Cephalexin 250 mg 3 times a day for 3 days to target urinary tract infection Psychiatric medications: Prazosin 1 mg daily and 2 mg nightly Quetiapine 200 mg at bedtime Trazodone 200 mg at bedtime Vitamin D3 3000 units daily Abilify 5 mg daily Treatments 1. The patient is encouraged to participate with group and milieu therapy. 2. The patient is encouraged to continue medications as prescribed. 3. The patient will meet with the treatment team on a daily basis to assess symptoms, side effects, and response to treatment. 4. trazodone 100 mg at bedtime, Seroquel 100 mg at bedtime, and continue prazosin twice a day 7. Benzodiazepines will be avoided given her history of substance use and apparent precipitant for current admission. She also does not appear to have actual catatonia. 8. Although the patient has expressed a desire for jail placement, the structured environment and requirements there will likely be difficult for the patient. PACT or similar involvement may be beneficial. 9. A community stakeholder meeting regarding management of this complicated patient is warranted. Wale Stinson MD Mar 24, 2016 15:45
--- NOTE | 2016-03-24 18:09 | NUR ---
Observations 0700 to 1900 Pt maintained behavioral control throughout the shift. Pt is mostly flat, and continues to be entitled and needy but seemed to make fewer requests that previous shifts. Pt attended community meeting and set goal to talk to doctor and make a list of questions. Pt spent most of day out on unit, talking to peers and watching TV. Pt ate 75-100% of meals and was observed every 15 minutes as ordered.
[2016-03-24] MEDS: hydrOXYzine Pamoate 25 mg Capsule PO PRN (18:36)
[2016-03-24] MEDS: diphenhydrAMINE 50 mg Capsule PO PRN (20:04)
[2016-03-24] MEDS: Insulin GLARgine 100 Unit/mL Syringe SUBQ SCH (20:19)
--- NOTE | 2016-03-24 20:19 | NUR ---
PT REFUSED HS MEDICATIONS Pt. refused all of her scheduled HS medications tonight and FSBS. When this entry writer informed her, as I did yesterday evening as well, that the doctor has ordered her to take Seroquel she insisted that "he changed it today! He told me he was changing it today-- I asked him twice". When she heard she could take a Zyprexa injection in place of the Seroquel she was amenable and willingly allowed the injection to be administered in L buttock w/no issue or protest. She also received PRN Benadryl for generalized itching.
--- NOTE | 2016-03-25 06:33 | NUR ---
Nursing Noc Pt awake at 0545 this shift after report of a good nights sleep. Pt pleasant and cooperative up watching TV and having coffee. Pt denies discomfort or concern this am. Continued to monitor safety by Q15 minute visual, mood, behavior emotional state.
[2016-03-25] MEDS: Pantoprazole 40 mg ER24 Tablet PO SCH (07:30)
[2016-03-25] MEDS: Insulin LISPRO 300 Unit/3 mL Inj SUBQ SCH ×3 (08:00→17:30)
[2016-03-25] MEDS: predniSONE 10 mg Tablet PO SCH (08:00)
[2016-03-25] MEDS: Hydroxychloroqine 200 mg Tablet PO SCH (08:24)
[2016-03-25 10:54] VITALS: BP 120/81; PULSE 104; RESP 18
--- NOTE | 2016-03-25 12:42 | PCM.PNPSY ---
Subjective Date of Service Mar 25, 2016 Subjective I spent 20 minutes both reviewing treatment plan and providing supportive/ educational psychotherapy. Tabitha was pleasant and appropriately verbal for the second day in a row. She had been tending to alternate every other day between " playing possum" and advocating for her self-care. She is no longer isolating in her room and is asking staff for help in arranging outpatient treatment and prison. She is participating well in one-to -one or unit activities. She slept 7 hours . She responded easily to all my questions today and consistently denied medication side effects. In the dining morales prior to meeting with her She was bright and alert. She had a normal gait. She was seeking out different types of of food and drinks. She was interacting appropriately with other patients. She was appropriate with me again during our one-to-one. Mental Status Exam Vital Signs Vital Signs Date Time Temp Pulse Resp B/P Pulse Ox O2 Delivery O2 Flow Rate FiO2 03/25/16 10:54 36.1 104 18 120/81 Appearance: Neat/well groomed Attitude: Pleasant, Cooperative Behavior: No unusual behavior Affect: Well Modulated/Appropriate Mood: Euthymic Thought Process/Associations: Logical/Sequential, Goal Directed Speech Production: Normal Speech Rate: Normal Speech Articulation: Normal Thought Content: Appropriate Danger to Self/Suicidal Ideati: None Danger to Others: None Consciousness: Alert Orientation: Person, Place, Date, Situation Memory: Grossly Intact Estimate Intellectual Function: Average Basis for IQ estimate: Awareness current events Attention/Concentration & Cogn: Grossly Intact Insight: Limited Judgement: Limited Result Diagram: 03/22/16 1155 03/22/16 1155 Mental Health Plan Tabitha is a 55-year-old white female, admitted under revocation of her 90 day least restrictive alternative for altered mental status. A medical workup has been essentially negative. She tends to report amnesia or simply stares blankly ahead and refuses to answer questions. The patient struggles with chronic illness of diabetes and lupus but it does not appear that these issues are contributing to her current behavior. The patient's main issue from my evaluation is PTSD, and borderline personality traits. She presented for hospitalization with no clear precipitating event. Medically she is stable. Her symptoms appear to significantly vary depending on the individual with whom she is interacting. Given her recent good response to low-dose Seroquel and prazosin and to treat her symptoms her presentation is most consistent for PTSD and factitious disorder and not a major psychiatric illness. Tabitha easily engaged and alert today. She had no trouble reviewing her treatment plan and coming up with steps for support after discharge. Requested a transition from Seroquel to Zyprexa as Seroquel had been too sedating. [place] AXIS I: 1. Posttraumatic stress disorder chronic. 2. Factitious disorder 3. Psychotic disorder unspecified AXIS II: 1. Borderline personality disorder, by history. 2. Dependent personality disorder, by history. AXIS V: Please see past medical history. AXIS IV: Psychosocial stressors are moderate with chronic mental health issues, treatment noncompliance, poor coping skills and limited social supports. AXIS V: Global Assessment of Functioning 45. Treatments Patient is being provided with a high degree of safety through the structure and active adult engagement. We will focus on developing improved coping skills and identifying stressors that may have led to current episode. We will attempt to: Integrate into therapeutic groups, milieu and individual therapy. Maintain in a closely monitored and structured unit Provide low-stimulation environment Obtain collateral data to assist in treatment planning Assess degree of lability of affect and impulse control Decrease frequency of need for re-hospitalization Establish a consistent sleep pattern Medication effective in stabilization of mood and/or thought process Reduce the risk of imminent harm to self and/or others by providing a safe environment Tolerates medication without side effects Patient will be on the following psychiatric medications: Prazosin 1 mg daily and 2 mg nightly Zyprexa 5 mg at bedtime Trazodone 100 mg at bedtime Vitamin D3 3000 units daily Education: Educate patient about recreational drug use as an etiology Evaluate iatrogenic drug use as an etiology Educate about metabolic etiologies related to obesity Address patient's legal status Patient is on a revocation of a 90 day LRA Disposition: Although the patient has expressed a desire for longterm placement, the structured environment and requirements there will likely be difficult for the patient. PACT or similar involvement may be beneficial. A community stakeholder meeting regarding management of this complicated patient is warranted. Wale Stinson MD Mar 25, 2016 12:42
--- NOTE | 2016-03-25 13:25 | NUR ---
Production Line Solderer./ c.m. S.:"I'm feeling better. I hope I can go to that place. Can you say something good about me to that people? A nurse will come tomorrow and she will talk to you... I want to go there. I think it will be a good place for me." O.: met with pt. to discuss her future plans. She met with Tyree Goncalves, "[facility]" customer contact representative, yesterday. She signed JAYLIN for Tyree. She thinks that it will be a good place for her. She said "I need help but I don't want to come to this hospital anymore." She said that tomorrow a nurse from "[facility]" will come to do Assessment with her. She said "It is an expensive place and I'm not sure if I can effort it. I might but barely." She said that Tyree Cope would like her to go straight from here to "[facility]" but pt. doesn't know how she could pack up all her stuff in her apartment and move it to a new place. "You have to help me with that because I don't know how to do that." We talked about her c.m. at [facility] and how she can get help there. She denied SI/HI. She slept well last night. She described her mood as "good today". She also was concerned about dose of her medications because she "didn't see a regular doctor for awhile." A.: pt. is cooperative, pleasant, has a bright affect and a positive attitude. P.: monitor behavior, possible Assessment tomorrow by a nurse from "[facility]", coordinate with c.m. at [facility] and providers at [place]; follow care plan.
[2016-03-25] MEDS: hydrOXYzine Pamoate 25 mg Capsule PO PRN (14:56)
--- NOTE | 2016-03-25 17:34 | NUR ---
[facility] Day Shift Pt maintained behavioral control throughout the shift. Pt affect appears mostly flat, brighter in the evening. Pt spends most of the shift resting in her room, pacing aimlessly on the unit, or interacting with peers. Pt is appropriate with staff and peers when active on the unit. Pt continues to engage staff frequently with multiple requests for unit amenities and assistance (thought to a lesser extent than noted on previous shifts). Pt attempted to participate in group activities, with varying degrees of success. Pt attended all meals and ate approx 80% of all meals.
[2016-03-25] MEDS: diphenhydrAMINE 50 mg Capsule PO PRN (17:56)
--- NOTE | 2016-03-25 19:24 | NUR ---
Nursing Note [id number] S: My stomach has been upset so I dont want to take all of my medications. I will take these and these. I am not sure if you can take my blood pressure over this (sweatshirt). O: Patient interacting appropriately with staff/peers. Watching TV. Reporting anxiety as really high. Patient refusing majority of medications or taking partial doses due to upset stomach. A: Patient more cooperative, no confrontational behaviors this shift. Brighter affect R/T hopes of discharging on P: Monitor for response to treatment. Q 15 min checks for safety. Follow plan of care. Addendum: 03/25/16 at 1924 by JHONNY DICK RN PRNs Vistaril 25 mg po given for high anxiety @ 1456-pt unable to rate. Anxiety decreased, patient coloring in dining room.
[2016-03-25] MEDS: Insulin GLARgine 100 Unit/mL Syringe SUBQ SCH ×2 (20:57→21:09)
--- NOTE | 2016-03-26 03:59 | NUR ---
Observations from [id number] Pt was pleasant and appropriate with staff and peers. Pt switched between being in bed and interacting with other patients and was cooperative with staff all evening. Pt was asleep from 0123-0051 and fell asleep by 0130. Pt has been monitored every 15 minutes as directed.
--- NOTE | 2016-03-26 05:52 | NUR ---
Nursing NOC Pt pleasant and interactive in evening, appropriate with staff and willing to take most of her HS meds besides Requip and partial dose of Gabapentin, also allows glucose checks and accepts her Lantus. Pt in good spirits and occasionally laughing with staff and peers. Pt asleep from 2245to 0115 and then again from 0130 on for remainder of night.
[2016-03-26] MEDS: Pantoprazole 40 mg ER24 Tablet PO SCH (07:30)
[2016-03-26] MEDS: predniSONE 10 mg Tablet PO SCH (08:00)
[2016-03-26] MEDS: Insulin LISPRO 300 Unit/3 mL Inj SUBQ SCH ×3 (08:00→16:44)
[2016-03-26] MEDS: Hydroxychloroqine 200 mg Tablet PO SCH (08:30)
[2016-03-26 10:14] VITALS: BP 117/79; PULSE 102; RESP 16
--- NOTE | 2016-03-26 15:07 | NUR ---
Nursing; Day shift: S: I want my medications changed to match what I took this morning. O: Tabitha was up early in the shift and has been out on the open unit for meals and snacks. Dressed neatly. She smiles when approaching staff. Pleasant facial expression. No complaints of pain. Did choose partial doses and took a few of her meds to take today. Refused her humalog insullin in a.m. and at noon. Asked for a list of medications that she has ordered here. Does not voice any intention to harm self. A: Pt familiar with unit. Comfortable here. P: Continue to watch for effectiveness of current med regimen. Do override if pt refuses antipsychotic this evening. Addendum: 03/26/16 at 1528 by JORGE SMITH RN Amended: Links added.
--- NOTE | 2016-03-26 16:40 | NUR ---
Observations [id number] Pt was asleep in room upon start of shift. Pt attended all meals, eating 100% and appeared to have a large appetite. Pt spent lots of time on the phone, making plans for when she is released. Pt shared that she hopes to get into an assisted living facility. Pt spent time with peers and in her room. Interactions with both staff and other patients was observed to be friendly. Pt did not participate in group activities. She was observed every 15 minutes of shift as directed.
[2016-03-26] MEDS: hydrOXYzine Pamoate 25 mg Capsule PO PRN (16:41)
--- NOTE | 2016-03-26 17:14 | NUR ---
REFUSING FULL DOSE OF MEDICATIONS Pt. only agreeable to take partial doses of her afternoon medications. "I'll take one of each, thank you". Pt. stated that taking "just one pill" of each medication "will help my stomach". Her AC FSBS was 168 and she refused her correctional insulin dose of 1 unit.
--- NOTE | 2016-03-26 18:39 | NUR ---
Petroleum Refinery Laborer/Counselor: S: "I feel pretty confused because I had so many head injuries." O: Patient slept 7.5 hours last night as per staff. She stated that she has thoughts of hurting herself and "they come and go." She denies H/I. She reports that she thinks she's hearing voices due to her "brain injuries. I feel like I have a bunch of gunk in my head." She visual hallucinations. Depression and anxiety are "pretty high." This junior underwriter [facility] with the [facility] about getting a fiduciary as requested by patient and will follow up with a letter requesting a [facility] fiduciary. This junior underwriter also updated patient of status at [facility], and [facility] [place] assisted living facilities. A: Patient is cooperative, unkept, flat affect, fair insight, fair judgment. P: Follow care plan, coordinate out-patient providers and the [facility].
[2016-03-26] MEDS: diphenhydrAMINE 50 mg Capsule PO PRN (18:43)
[2016-03-26] MEDS: BusPIRone 15 mg Dividose Tablet PO SCH (20:24)
[2016-03-26] MEDS: Insulin GLARgine 100 Unit/mL Syringe SUBQ SCH (20:25)
--- NOTE | 2016-03-26 20:25 | NUR ---
PT REFUSED HS FSBS, PARTIAL DOSES OF MEDICATIONS Pt. stated "I don't need it" when asked to take her FSBS. She agreed to 300 mg of her scheduled Gabapentin, agreed to her Trazodone, and to her Zyprexa. She refused all other scheduled HS meds. Education provided.
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
--- NOTE | 2016-03-27 01:24 | NUR ---
Observations 1900 to 0700 Pt was out and about more than usual last night. Pt was polite and cooperative with staff and peers. Pt first appeared asleep at 22:30 and was observed every 15 minutes through the night as directed.
--- NOTE | 2016-03-27 06:05 | NUR ---
Nursing, Nights, 11-7 s/o- has appeared to sleep 2230 during q 15 minute assessments. a- no apparent distress. p- monitor behavior/emotional state, quality, times and amount of sleep, use and effect of medication.
[2016-03-27] MEDS: Pantoprazole 40 mg ER24 Tablet PO SCH (07:30)
[2016-03-27] MEDS: BusPIRone 15 mg Dividose Tablet PO SCH ×3 (07:48→19:59)
[2016-03-27] MEDS: Insulin LISPRO 300 Unit/3 mL Inj SUBQ SCH ×3 (08:00→17:30)
[2016-03-27] MEDS: predniSONE 10 mg Tablet PO SCH (08:00)
[2016-03-27] MEDS: Hydroxychloroqine 200 mg Tablet PO SCH (08:30)
[2016-03-27 09:00] VITALS: BP 120/78; PULSE 97; RESP 16
[2016-03-27] MEDS: hydrOXYzine Pamoate 25 mg Capsule PO PRN (15:53)
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
--- NOTE | 2016-03-27 18:31 | NUR ---
Nursing: DAY SHIFT 0700 TO 1900 Tabitha is dressed neatly with good hygiene. She is very aware of all medications ordered. She does state that too any pills at once hurt her stomach and she has requested and received lower doses than ordered on some medications. Chemical Operator advised her that she needs to discuss the medications for her medical condition with her provider for future treatment plan. She has been out on the unit with appropriate behavior. Was seen by usp provider this shift. REquested and received tylenol for general pain. an hour later she stated "it helped". A: Able to handle self-care. Future oriented. P: Continue to work toward discharge.
--- NOTE | 2016-03-27 19:30 | NUR ---
Family Medicine Physician Assistant/Counselor: S: "I need help getting in an assisted living place." O: Patient slept 7.25 hours last night as per staff. She denies S/I and H/I. She reports hearing voices of people yelling and slamming doors. Staff informed patient that the yelling and door slamming may be due to another patient actually yelling and slamming doors. She denies visual hallucinations. Depression is "unsure" and anxiety is "high." Patient was assessed by an realty specialist from [facility]. Patient may be able to move in their Independent Living 1 bedroom apartment or if needed, the assisted living apartments on the premises. Awaiting update tomorrow. A: Patient is cooperative, anxious, limited insight, limited judgment. P: Follow care plan, coordinate with out-patient providers and Assisted/Independent Living facilities.
[2016-03-27] MEDS: Insulin GLARgine 100 Unit/mL Syringe SUBQ SCH (20:03)
--- NOTE | 2016-03-28 01:30 | NUR ---
Observations 1900 to 0700 Pt was out and about more than usual last night. Pt was polite and cooperative with staff and peers. Pt first appeared asleep at 22:00 and was observed every 15 minutes through the night as directed.
--- NOTE | 2016-03-28 06:09 | NUR ---
Nursing, Nights, 11-7 s/o- has appeared to sleep 2200 during q 15 minute assessments. a- no apparent distress. p- monitor behavior/emotional state, quality, times and amount of sleep, use and effect of medication.
[2016-03-28] MEDS: Pantoprazole 40 mg ER24 Tablet PO SCH (07:30)
[2016-03-28] MEDS: predniSONE 10 mg Tablet PO SCH (08:00)
[2016-03-28] MEDS: Insulin LISPRO 300 Unit/3 mL Inj SUBQ SCH ×2 (08:05→12:38)
[2016-03-28] MEDS: BusPIRone 15 mg Dividose Tablet PO SCH (08:30)
[2016-03-28] MEDS: Hydroxychloroqine 200 mg Tablet PO SCH (08:30)
--- NOTE | 2016-03-28 11:21 | NUR ---
Nursing: Day shift: S: I will just take two units this morning (even though the sliding scale order was for 3 units of humalog insulin.) O: Tabitha is dressed neatly. Smiles when approached. Is coloring as an activity. She continues to customize the meds that she accepts. No complaints of pain or requests for anything for anxiety. Denies suicidality. A: Awaiting discharge. Addendum: 03/28/16 at 1129 by JORGE SMITH RN Amended: Links added.
--- NOTE | 2016-03-28 14:23 | PCM.DIMED ---
Discharge Instructions Date of Service Mar 28, 2016 Dates of Hospitalization Mar 07, 2016 at 18:35 Discharge Diagnosis Discharge Diagnosis AXIS I: 1. Posttraumatic stress disorder chronic. 2. Factitious disorder 3. Psychotic disorder unspecified AXIS II: 1. Borderline personality disorder, by history. 2. Dependent personality disorder, by history. AXIS V: Please see past medical history. AXIS IV: Psychosocial stressors are moderate with chronic mental health issues, treatment noncompliance, poor coping skills and limited social supports. AXIS V: Global Assessment of Functioning 45. Diet Diabetic Activity No restrictions Patient Instructions Should you have any thoughts of harming yourself or others, please call the crisis line, your provider, 911, or go to the nearest Emergency Department. Do not change or discontinue your medications without discussing with your provider. Follow-up plan Daniel Monet., Mechanical Striper on 03/29/16 at 3:00pm [address] [address] Severo Garnett MD Mar 28, 2016 14:22
[2016-03-28] MEDS ORDERED: BUSP15TA3 PO (14:56)
[2016-03-28] MEDS ORDERED: TRAZ-118 PO (14:56)
[2016-03-28] MEDS ORDERED: albuterol inhaler (14:56)
[2016-03-28] MEDS ORDERED: MAGN400T4 PO (14:56)
[2016-03-28] MEDS ORDERED: INSU100V7 SUBQ (14:56)
[2016-03-28] MEDS ORDERED: CHOL3000 PO (14:56)
[2016-03-28] MEDS ORDERED: OLAN5TAB PO (14:56)
--- NOTE | 2016-03-28 15:18 | NUR ---
Discharge. Tabitha was informed that she would be discharged today at 1500. She signed some papers, did not sign others. She received original paper copies of prescriptions. She gathered belongings. Left unit at 1515 accompanied by bicycle taxi driver.
[2016-03-28 15:21] VITALS: BP 111/77; PULSE 101; RESP 16
--- NOTE | 2016-03-28 17:17 | NUR ---
Durability Engineer/Counselor: S: "I need help getting in an assisted living place." O: Patient slept 7.5+ hours last night as per staff. She denies S/I and H/I. She denies auditory and visual hallucination. Depression is "a little" and anxiety is "a little." When asked her mood, patient stated, Daniel Monet, [facility], 03/29/16 at 3:00pm. A: Patient is cooperative, anxious, limited insight, limited judgment. P: Follow care plan, coordinate with out-patient providers.
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
== END 2016-03-28 15:15 | disposition home or self-care (01) | DRG 882 ==
LOC: SED 11:42 → MHC 18:35
PROVIDERS: ADMIT Psychiatry & Neurology Psychiatry; ATTEND Psychiatry & Neurology Psychiatry
DX: F43.12 Post-traumatic stress disorder, chronic (principal); F68.10 Factitious disorder imposed on self, unspecified; F60.3 Borderline personality disorder; F32.9 Major depressive disorder, single episode, unspecified; F41.9 Anxiety disorder, unspecified; E03.9 Hypothyroidism, unspecified; E11.9 Type 2 diabetes mellitus without complications; Z79.52 Long term (current) use of systemic steroids; M32.9 Systemic lupus erythematosus, unspecified; Z87.891 Personal history of nicotine dependence; Z79.4 Long term (current) use of insulin; F60.7 Dependent personality disorder; Z59.0 Homelessness; F29 Unspecified psychosis not due to a substance or known physiological condition